=== PATIENT | male | born 1955 | race Caucasian/White ===

== ENCOUNTER 2020-04-11 21:30 | Emergency (ER) | payer BC ==
[2020-04-11] MEDS ORDERED: MEPERIDINE HCL 50 MG/ML ONE (22:13)
[2020-04-11] MEDS ORDERED: dexAMETHasone 4 MG/ML VIAL ONE (22:15)
[2020-04-11] MEDS ORDERED: KETOROLAC 30 MG/ML INJ ONE (22:16)
--- NOTE | 2020-04-11 23:06 | EDPHYS ---
Physician Documentation [facility] Name: Barrington Mary Age: 65 yrs Sex: Male : 1955 Arrival Date: 04/11/2020 Time: 21:32 Bed 13 Private MD: Julio Cesar Palencia ED Physician Blake Gerardo HPI: 04/11 22:17 This 65 yrs old Male presents to ER via Ambulatory with complaints of Low rn Back Pain. 22:17 The patient presents with pain that is acute. The symptoms are located in the low back, rn right low back. The pain does not radiate. Onset: The symptoms/episode began/occurred just prior to arrival. Modifying factors: The patient symptoms are alleviated by remaining still, the patient symptoms are aggravated by bending, movement. Associated signs and symptoms: Pertinent positives: none Pertinent negatives: abdominal pain, chest pain, constipation, dysuria, fever, headache, hematuria, incontinence, nausea, numbness, tingling, urinary retention, vomiting, weakness. Severity of symptoms: At their worst the symptoms were moderate, in the emergency department the symptoms are unchanged. The patient has not experienced similar symptoms in the past. Reports low back pain for last few days, has been walking a lot more lately, no direct injury, no abd pain, no urinary or bowel problems. no weakness of lower ext or focal neuro complaint. Reports pain to touch right lower back, to twist and rotate. Needed help getting out of bath tub due to pain. Better when still. . Historical: - Allergies: 21:47 Nubain; ca1 - Home Meds: 21:47 None [Active]; ca1 - PMHx: 21:47 Hypertension; High Cholesterol; ca1 - PSHx: 21:47 Carpal Tunnel Repair; Knee surgery; Appendectomy; Tonsillectomy; chin surgery; ca1 - Immunization history:: Adult Immunizations up to date. - Social history:: Smoking status: Patient/guardian denies using tobacco, the patient reports quitting approximately 5 years ago. - Family history:: not pertinent. - Hospitalizations: : No recent hospitalization is reported. ROS: 22:17 Constitutional: Negative for fever, chills, and weight loss, Neck: Negative for injury, rn pain, and swelling, Cardiovascular: Negative for chest pain, palpitations, and edema, Respiratory: Negative for shortness of breath, cough, wheezing, and pleuritic chest pain, Abdomen/GI: Negative for abdominal pain, nausea, vomiting, diarrhea, and constipation, Back: Negative for injury. + low back pain. MS/Extremity: Negative for injury and deformity, Skin: Negative for injury, rash, and discoloration, Neuro: Negative for headache, weakness, numbness, tingling, and seizure. Exam: 22:17 Constitutional: This is a well developed, well nourished patient who is awake, alert, rn and in no acute distress. Head/Face: Normocephalic, atraumatic. Cardiovascular: Regular rate and rhythm. No pulse deficits. Respiratory: Speaking full sentences, unlabored. Abdomen/GI: soft, non-tender, no distension, no pulsatile mass Back: No spinal tenderness, + right lower back muscular tenderness and reproducible pain with rotation/lifting right leg. Skin: Warm, dry, no cyanosis. MS/ Extremity: Pulses equal, no cyanosis. Neurovascular intact. Full, normal range of motion. Equal circumference. Neuro: Awake and alert, GCS 15, oriented to person, place, time, and situation. Cranial nerves II-XII grossly intact. Motor strength 5/5 in all extremities. Sensory grossly intact. Cerebellar exam normal. Vital Signs: 21:42 BP 178 / 107; Pulse 70; Resp 16 S; Temp 97.5(TE); Pulse Ox 98% on R/A; Weight 97.52 kg ca1 (R); Height 5 ft. 8 in. (172.72 cm) (R); Pain 10/10; 22:53 BP 159 / 87; Pulse 66; Resp 17 S; Pulse Ox 96% on R/A; jd3 23:16 BP 159 / 87; Pulse 68; Resp 16 S; Pulse Ox 96% on R/A; jd3 21:42 Body Mass Index 32.69 (97.52 kg, 172.72 cm) ca1 MDM: 21:47 Patient medically screened. rn 23:04 Differential diagnosis: strain, muscular pain. Data reviewed: vital signs, nurses rn notes, and as a result, I will discharge patient. Counseling: I had a detailed discussion with the patient and/or guardian regarding: the historical points, exam findings, and any diagnostic results supporting the discharge/admit diagnosis, the need for outpatient follow up, to return to the emergency department if symptoms worsen or persist or if there are any questions or concerns that arise at home. Special discussion: I discussed with the patient/guardian in detail that at this point there is no indication for admission to the hospital. It is understood, however, that if the symptoms persist or worsen the patient needs to return immediately for re-evaluation. ED course: Pt improved, will dc home as muscular back pain, with muscle relaxer, steroid, and pain med. . Administered Medications: 22:14 Not Given (Duplicate Order): Demerol 50 mg IM once; RASS on ADMIN: Combtv4, Very rn Agttd3, Agttd2, Rstlss1, AlertClm0, Drwsy-1, Lt Sdtn-2, Mod Sdtn-3, Dp Sdtn-4, UnArsble-5 22:15 Not Given (Duplicate Order): Decadron 10 mg IM once rn 22:34 CANCELLED (Other Intervention Used): Demerol 25 mg IVP once; RASS on ADMIN: Combtv4, jd3 Very Agttd3, Agttd2, Rstlss1, AlertClm0, Drwsy-1, Lt Sdtn-2, Mod Sdtn-3, Dp Sdtn-4, UnArsble-5 22:34 Not Given (Other Intervention Used): Decadron - Dexamethasone 10 mg IVP once jd3 22:34 Not Given (Other Intervention Used): TORadol - Ketorolac 15 mg IVP once jd3 22:34 Drug: TORadol - Ketorolac 15 mg Route: IM; Site: left deltoid; jd3 23:17 Follow up: Response: No adverse reaction jd3 22:35 Drug: Decadron 10 mg Route: IM; Site: right gluteus; jd3 23:17 Follow up: Response: No adverse reaction jd3 22:35 Drug: Demerol 50 mg Route: IM; Site: left deltoid; jd3 23:17 Follow up: Response: No adverse reaction jd3 Disposition: 04/11/20 23:05 Discharged to Home. Impression: Muscle spasm of back, Low back pain. - Condition is Stable. - Discharge Instructions: Back Pain, Adult, Muscle Cramps and Spasms. - Prescriptions for Cyclobenzaprine 10 mg Oral Tablet - take 1 tablet by ORAL route every 8 hours As needed; 20 tablet. Medrol (Sammy) 4 mg Oral Tablets, Dose Pack - take 1 tablet by ORAL route as directed - follow package instructions; 1 packet. Tramadol 50 mg Oral Tablet - take 1 tablet by ORAL route every 8 hours as needed; 12 tablet. - Medication Reconciliation Form, Thank You Letter, Antibiotic Education, Prescription Opioid Use, Work release form form. - Follow up: Private Physician; When: As needed; Reason: Recheck today's complaints, Re-evaluation by your physician. - Problem is new. - Symptoms have improved. Signatures: Blake Gerardo MD MD rn GrimesBlaze RN RN jd3 Acob, Jennifer, RN RN ca1 Corrections: (The following items were deleted from the chart) 22:26 22:16 IV Saline Lock ordered. rn jd3 22:34 22:16 Demerol 25 mg IVP once; RASS on ADMIN: Combtv4, Very Agttd3, Agttd2, Rstlss1, jd3 AlertClm0, Drwsy-1, Lt Sdtn-2, Mod Sdtn-3, Dp Sdtn-4, UnArsble-5 ordered. rn 23:17 23:05 04/11/2020 23:05 Discharged to Home. Impression: Muscle spasm of back; Low back jd3 pain. Condition is Stable. Forms are Medication Reconciliation Form, Thank You Letter, Antibiotic Education, Prescription Opioid Use. Follow up: Private Physician; When: As needed; Reason: Recheck today's complaints, Re-evaluation by your physician. Problem is new. Symptoms have improved. rn
--- NOTE | 2020-04-11 23:06 | ER ---
Nurse's Notes [facility] Name: Barrington Mary Age: 65 yrs Sex: Male : 1955 Arrival Date: 04/11/2020 Time: 21:32 Bed 13 Private MD: Julio Cesar Palencia Diagnosis: Muscle spasm of back;Low back pain Presentation: 04/11 21:42 Chief complaint: Patient states: Low back pain more on the R started Thursday. Denies ca1 injury. Denies urinary symptoms. Denies HX of kidney stones. Tonight, reports twisting back and worsening pain. Pain is worst with twisting ang movement. Coronavirus screen: Client denies travel out of the [place] in the last 14 days. At this time, the client does not indicate any symptoms associated with coronavirus-19. Client reports previous positive COVID test result. Date of collection: December 2019. Ebola Screen: Patient negative for fever greater than or equal to 101.5 degrees Fahrenheit, and additional compatible Ebola Virus Disease symptoms Patient denies exposure to infectious person. Patient denies travel to an Ebola-affected area in the 21 days before illness onset. No symptoms or risks identified at this time. Initial Sepsis Screen: Does the patient meet any 2 criteria? No. Patient's initial sepsis screen is negative. Does the patient have a suspected source of infection? No. Patient's initial sepsis screen is negative. Risk Assessment: Do you want to hurt yourself or someone else? Patient reports no desire to harm self or others. Onset of symptoms was April 11, 2020. 21:42 Method Of Arrival: Ambulatory ca1 21:42 Acuity: SHAI 3 ca1 Historical: - Allergies: 21:47 Nubain; ca1 - Home Meds: 21:47 None [Active]; ca1 - PMHx: 21:47 Hypertension; High Cholesterol; ca1 - PSHx: 21:47 Carpal Tunnel Repair; Knee surgery; Appendectomy; Tonsillectomy; chin surgery; ca1 - Immunization history:: Adult Immunizations up to date. - Social history:: Smoking status: Patient/guardian denies using tobacco, the patient reports quitting approximately 5 years ago. - Family history:: not pertinent. - Hospitalizations: : No recent hospitalization is reported. Screenin:49 Abuse screen: Denies threats or abuse. Nutritional screening: No deficits noted. jd3 Tuberculosis screening: No symptoms or risk factors identified. Fall Risk Ambulatory Aid- None/Bed Rest/Nurse Assist (0 pts). Gait- Normal/Bed Rest/Wheelchair (0 pts) Mental Status- Oriented to own ability (0 pts). Total Fernandez Fall Scale indicates No Risk (0-24 pts). Assessment: 21:47 General: Appears in no apparent distress. uncomfortable, Behavior is calm, cooperative, jd3 appropriate for age. Pain: Complains of pain in low back area Quality of pain is described as sharp, shooting. Neuro: Level of Consciousness is awake, alert, obeys commands, Oriented to person, place, time, situation. Cardiovascular: Denies chest pain, Capillary refill < 3 seconds Patient's skin is warm and dry. Respiratory: Airway is patent Respiratory effort is even, unlabored, Respiratory pattern is regular, symmetrical, Denies cough, shortness of breath. GI: No signs and/or symptoms were reported involving the gastrointestinal system. : No signs and/or symptoms were reported regarding the genitourinary system. EENT: No signs and/or symptoms were reported regarding the EENT system. Derm: Skin is intact, Skin is dry, Skin is normal, Skin temperature is warm. Musculoskeletal: Circulation, motion, and sensation intact. Range of motion: intact in all extremities. 22:52 Reassessment: Patient appears in no apparent distress at this time. Patient and/or jd3 family updated on plan of care and expected duration. Pain level reassessed. Patient is alert, oriented x 3, equal unlabored respirations, skin warm/dry/pink. 23:16 Reassessment: Patient appears in no apparent distress at this time. Patient and/or jd3 family updated on plan of care and expected duration. Pain level reassessed. Patient is alert, oriented x 3, equal unlabored respirations, skin warm/dry/pink. Patient states feeling better. Vital Signs: 21:42 BP 178 / 107; Pulse 70; Resp 16 S; Temp 97.5(TE); Pulse Ox 98% on R/A; Weight 97.52 kg ca1 (R); Height 5 ft. 8 in. (172.72 cm) (R); Pain 10/10; 22:53 BP 159 / 87; Pulse 66; Resp 17 S; Pulse Ox 96% on R/A; jd3 23:16 BP 159 / 87; Pulse 68; Resp 16 S; Pulse Ox 96% on R/A; jd3 21:42 Body Mass Index 32.69 (97.52 kg, 172.72 cm) ca1 ED Course: 21:32 Patient arrived in ED. am2 21:32 Julio Cesar Palencia MD is Private Physician. am2 21:44 Blaze Grimes, RN is Primary Nurse. jd3 21:46 Triage completed. ca1 21:47 Blake Gerardo MD is Attending Physician. rn 21:47 Arm band placed on right wrist. ca1 21:49 Patient has correct armband on for positive identification. Bed in low position. Call jd3 light in reach. Side rails up X 1. Adult w/ patient. Pulse ox on. NIBP on. 23:16 No provider procedures requiring assistance completed. Patient did not have IV access jd3 during this emergency room visit. Administered Medications: 22:14 Not Given (Duplicate Order): Demerol 50 mg IM once; RASS on ADMIN: Combtv4, Very rn Agttd3, Agttd2, Rstlss1, AlertClm0, Drwsy-1, Lt Sdtn-2, Mod Sdtn-3, Dp Sdtn-4, UnArsble-5 22:15 Not Given (Duplicate Order): Decadron 10 mg IM once rn 22:34 CANCELLED (Other Intervention Used): Demerol 25 mg IVP once; RASS on ADMIN: Combtv4, jd3 Very Agttd3, Agttd2, Rstlss1, AlertClm0, Drwsy-1, Lt Sdtn-2, Mod Sdtn-3, Dp Sdtn-4, UnArsble-5 22:34 Not Given (Other Intervention Used): Decadron - Dexamethasone 10 mg IVP once jd3 22:34 Not Given (Other Intervention Used): TORadol - Ketorolac 15 mg IVP once jd3 22:34 Drug: TORadol - Ketorolac 15 mg Route: IM; Site: left deltoid; jd3 23:17 Follow up: Response: No adverse reaction jd3 22:35 Drug: Decadron 10 mg Route: IM; Site: right gluteus; jd3 23:17 Follow up: Response: No adverse reaction jd3 22:35 Drug: Demerol 50 mg Route: IM; Site: left deltoid; jd3 23:17 Follow up: Response: No adverse reaction jd3 Outcome: 23:05 Discharge ordered by . rn 23:17 Discharged to home ambulatory, with family. jd3 23:17 Condition: stable 23:17 Discharge instructions given to patient, Instructed on discharge instructions, follow up and referral plans. medication usage, Demonstrated understanding of instructions, follow-up care, medications, Prescriptions given X 3. 23:17 Patient left the ED. jd3 Signatures: Blake Gerardo MD MD rn Ermelinda Traylor Jonathon, RN RN jd3 Jennifer Rivas RN RN ca1
[2020-04-11 23:33] VITALS: TEMP 97.5
[2020-04-11 23:34] VITALS: BP 159/87; O2SAT 96
== END 2020-04-11 23:17 | disposition home or self-care (01) ==
LOC: ER 21:30
DX: M62.830 Muscle spasm of back (principal); I10 Essential (primary) hypertension; Z88.6 Allergy status to analgesic agent
CPT/HCPCS: 96372; 99283; J1100; J2175

== ENCOUNTER 2021-04-09 21:40 | Inpatient (IN) | payer BC, OTHER ==
[2021-04-09 22:20] LABS: Absolute Lymphocytes (CBC) 1.9 K/uL (0.7-4.9); Basophils % 0.3 % (0-1.3); Lymphocytes % 23.2 % (15.3-44.8); MPV 7.5 fL (7.6-11.3); RBC Red Blood Cell Count 4.68 M/uL (4.33-5.43)
[2021-04-09 22:35] LABS: ALT/SGPT 49 U/L (12-78); Alkaline Phosphatase 94 U/L (45-117); BUN Blood Urea Nitrogen 12 mg/dL (7-18); Bicarbonate 28 mmol/L (21-32); Bilirubin Direct 0.1 mg/dL (0-0.2); Bilirubin Total 0.3 mg/dL (0.2-1.0); Glucose Level 211 mg/dL (74-106); NT PRO-BNP 26 pg/mL (<125); Protein, Total 7.4 g/dL (6.4-8.2); Sodium Level 142 mmol/L (136-145); Troponin (Emerg Dept Use Only) < 0.02 ng/mL (0.0-0.045)
[2021-04-09 22:36] LABS: AST/SGOT 39 U/L (15-37); Magnesium 2.1 mg/dL (1.8-2.4); Potassium 3.9 mmol/L (3.5-5.1)
[2021-04-09] MEDS ORDERED: NITROGLYCERIN 1 GM PKT TD ONE (23:29)
[2021-04-09] MEDS ORDERED: LORazepam 2 MG/ML VIAL ONE (23:34)
[2021-04-09] MEDS ORDERED: NA CHLORIDE 0.9% 1,000 ML ONE (23:39)
--- NOTE | 2021-04-09 23:57 | EDPHYS ---
Physician Documentation [facility] Name: Barrington Mary Age: 66 yrs Sex: Male : 1955 Arrival Date: 04/09/2021 Time: 21:48 Bed 6 Private MD: ED Physician Niranjan Chen HPI: 04/09 23:20 This 66 yrs old Male presents to ER via EMS with complaints of Chest Pain. cp 23:20 The patient or guardian reports chest pain that is located primarily in the substernal cp area. 23:20 The pain does not radiate. Associated signs and symptoms: Pertinent negatives: cp abdominal pain, dizziness, lower extremity pain, lower extremity swelling, palpitations, shortness of breath, syncope, vomiting. The chest pain is described as aching. 23:20 Patient reports intermittent chest pain for past several weeks that is worse with cp exertion and relieved with rest. Patient reports episode of chest pain this evening while in shower. EMS was called and chest pain relieved with nitro and aspirin. Historical: - Allergies: 21:55 Nubain; vg1 21:55 Sulfa (Sulfonamide Antibiotics); vg1 - Home Meds: 21:55 Metformin Oral [Active]; Metoprolol Tartrate Oral [Active]; amlodipine oral [Active]; vg1 rosuvastatin oral [Active]; - PMHx: 21:55 High Cholesterol; Hypertension; vg1 - Immunization history:: Adult Immunizations up to date, Client reports receiving the 2nd dose of the Covid vaccine. - Social history:: Smoking status: Patient denies any tobacco usage or history of. ROS: 23:25 Constitutional: Negative for body aches, chills, fever, poor PO intake. cp 23:25 Eyes: Negative for injury, pain, redness, and discharge. cp 23:25 Neck: Negative for pain with movement, pain at rest, stiffness. 23:25 Cardiovascular: Positive for chest pain, Negative for edema, palpitations. 23:25 Respiratory: Negative for cough, shortness of breath, wheezing. 23:25 Abdomen/GI: Negative for abdominal pain, nausea, vomiting, and diarrhea. 23:25 Back: Negative for pain at rest, pain with movement. 23:25 Neuro: Negative for altered mental status, headache, syncope, weakness. 23:25 All other systems are negative. Exam: 22:00 ECG was reviewed by the Attending Physician. cp 23:30 Constitutional: The patient appears in no acute distress, alert, awake, cp non-diaphoretic, non-toxic, well developed, well nourished, anxious. 23:30 Head/Face: Normocephalic, atraumatic. cp 23:30 Eyes: Periorbital structures: appear normal, Conjunctiva: normal, no exudate, no injection, Sclera: no appreciated abnormality, Lids and lashes: appear normal, bilaterally. 23:30 ENT: External ear(s): are unremarkable, Nose: is normal, Mouth: Lips: moist, Oral mucosa: pink and intact, moist, Posterior pharynx: Airway: no evidence of obstruction, patent. 23:30 Neck: ROM/movement: is normal, is supple, without pain, no range of motions limitations. 23:30 Chest/axilla: Inspection: normal, Palpation: is normal, no crepitus, no tenderness. 23:30 Cardiovascular: Rate: normal, Rhythm: regular, Edema: is not appreciated, JVD: is not appreciated. 23:30 Respiratory: the patient does not display signs of respiratory distress, Respirations: normal, no use of accessory muscles, no retractions, labored breathing, is not present, Breath sounds: are clear throughout, no decreased breath sounds, no stridor, no wheezing. 23:30 Abdomen/GI: Inspection: abdomen appears normal, Palpation: abdomen is soft and non-tender. 23:30 Back: pain, is absent, ROM is normal. 23:30 Neuro: Orientation: is normal, Mentation: is normal, Motor: moves all fours, strength is normal, Sensation: is normal. Vital Signs: 21:51 BP 141 / 79; Pulse 62; Resp 18; Temp 98.1; Pulse Ox 98% ; Weight 99.79 kg; Height 5 ft. vg1 8 in. (172.72 cm); Pain 1/10; 23:26 BP 145 / 86; Pulse 56; Resp 18; Pulse Ox 100% on R/A; Pain 3/10; wg 04/10 00:45 BP 142 / 80; Pulse 60; Resp 18; Pulse Ox 99% on R/A; Pain 0/10; wg 04/09 21:51 Body Mass Index 33.45 (99.79 kg, 172.72 cm) [facility] MDM: 04/09 23:06 Patient medically screened. cp 23:55 The patient was not given aspirin in the Emergency Department. Administered by EMS. cp 23:55 Differential diagnosis: abnormal EKG, anxiety, cholecystitis, Cholelithiasis pleurisy, cp pneumonia, pneumothorax, pulmonary embolus, stable angina, thoracic aortic disection, unstable angina. Data reviewed: vital signs, nurses notes, lab test result(s), EKG, radiologic studies, plain films. Test interpretation: by ED physician or midlevel provider: ECG, plain radiologic studies. Response to treatment: the patient's symptoms have markedly improved after treatment, and as a result, I will admit patient. Physician consultation: Jin HORTON was called at 23:50, was contacted at 23:50, regarding admission, to the telemetry unit. patient's condition. 04/09 21:58 Order name: Basic Metabolic Panel; Complete Time: 23:06 [facility] 04/09 21:58 Order name: CBC with Diff; Complete Time: 23:06 [facility] 04/09 21:58 Order name: LFT's; Complete Time: 23:06 [facility] 04/09 21:58 Order name: Magnesium; Complete Time: 23:06 [facility] 04/09 21:58 Order name: NT PRO-BNP; Complete Time: 23:06 [facility] 04/09 21:58 Order name: PT-INR; Complete Time: 23:06 [facility] 04/09 21:58 Order name: Troponin (emerg Dept Use Only); Complete Time: 23:06 [facility] 04/09 21:58 Order name: XRAY Chest (1 view) [facility] 04/09 23:25 Order name: SARS-COV-2 RT PCR [facility] 04/09 21:58 Order name: EKG; Complete Time: 21:59 [facility] 04/09 21:58 Order name: Cardiac monitoring; Complete Time: 22:51 [facility] 04/09 21:58 Order name: EKG - Nurse/Tech; Complete Time: 21:58 [facility] 04/09 21:58 Order name: IV Saline Lock; Complete Time: 21:58 [facility] 04/09 21:58 Order name: Labs collected and sent; Complete Time: 21:58 [facility] 04/09 21:58 Order name: O2 Per Protocol; Complete Time: 21:58 [facility] 04/09 21:58 Order name: O2 Sat Monitoring; Complete Time: :58 [facility] 04/10 00:04 Order name: CONS Physician Consult; Complete Time: 00:38 EDMS EC:00 Rate is 60 beats/min. Rhythm is regular. GA interval is normal. QRS interval is cp prolonged at 108 msec. QT interval is normal. T waves are Inverted in lead aVR. Interpreted by me. Reviewed by me. Administered Medications: 23:12 Drug: Ativan (LORazepam) 0.5 mg Route: IVP; Infused Over: 2 mins; Site: left antecubital; 04/10 01:00 Follow up: Response: No adverse reaction 04/09 23:13 Drug: NS 0.9% 1000 ml Route: IV; Rate: 75 ml/hr; Infused Over: 30 mins; Site: left antecubital; 04/10 00:59 Follow up: IV Status: Completed infusion; IV Intake: 1000ml 04/09 23:13 Not Given (Given By EMS): Aspirin Chewable Tablet 324 mg PO once; 81 mg tablets x 4 04/10 00:10 Drug: Ativan (LORazepam) 0.5 mg Route: IVP; Infused Over: 2 mins; Site: left antecubital; 01:00 Follow up: Response: No adverse reaction Disposition: 07:28 Co-signature as Attending Physician, Niranjan Chen MD. 7 Disposition Summary: 04/09/21 23:56 Hospitalization Ordered Hospitalization Status: Observation cp Provider: Narciso Lechuga cp Location: Telemetry/MedSurg (observation) cp Condition: Stable cp Problem: new cp Symptoms: have improved cp Bed/Room Type: Standard cp Room Assignment: 428(04/10/21 00:44) 1 Diagnosis - Angina pectoris, unspecified cp Forms: - Medication Reconciliation Form cp - SBAR form cp Signatures: Dispatcher [employer] EDMS Ean Lopez PA PA cp Basinger, Emily, RN RN eb1 Tiffani Duffy RN RN 1 Niranjan Chen MD MD 7 Ted King RN Corrections: (The following items were deleted from the chart) 04/09 23:25 23:02 CORONAVIRUS+MR.LAB.BRZ ordered. EDMS EDMS 04/10 00:44 10/19 23:56 cp eb1
--- NOTE | 2021-04-09 23:57 | ER ---
Nurse's Notes [facility] Name: Barrington Mary Age: 66 yrs Sex: Male : 1955 Arrival Date: 04/09/2021 Time: 21:48 Bed 6 Private MD: Diagnosis: Angina pectoris, unspecified Presentation: 04/09 21:51 Chief complaint: EMS states: Chest Pain, states mid sternum, denies radiation. Denies vg1 NVD, headache, abd pain. Stated had mid back pain but at this time no pain. Pt was given Nitro 0.4 mg by EMS. EMS stated initial BP was 198/110 after Nitro BP was 127/71. Pt states Left side of Jaw has been hurting for the past couple weeks. Coronavirus screen: Vaccine status: Patient reports receiving the 2nd dose of the covid vaccine. Client denies travel out of the [place] in the last 14 days. Ebola Screen: Patient negative for fever greater than or equal to 101.5 degrees Fahrenheit, and additional compatible Ebola Virus Disease symptoms. Initial Sepsis Screen: Does the patient meet any 2 criteria? No. Patient's initial sepsis screen is negative. Does the patient have a suspected source of infection? No. Patient's initial sepsis screen is negative. Risk Assessment: Do you want to hurt yourself or someone else? Patient reports no desire to harm self or others. Onset of symptoms was April 09, 2021. 21:51 Method Of Arrival: EMS: [facility] 1 21:51 Acuity: SHAI 3 vg1 Triage Assessment: 21:55 General: Appears in no apparent distress. uncomfortable, Behavior is calm, cooperative. vg1 Pain: Complains of pain in chest. Cardiovascular: Patient's skin is warm and dry. Historical: - Allergies: 21:55 Nubain; vg1 21:55 Sulfa (Sulfonamide Antibiotics); vg1 - Home Meds: 21:55 Metformin Oral [Active]; Metoprolol Tartrate Oral [Active]; amlodipine oral [Active]; vg1 rosuvastatin oral [Active]; - PMHx: 21:55 High Cholesterol; Hypertension; vg1 - Immunization history:: Adult Immunizations up to date, Client reports receiving the 2nd dose of the Covid vaccine. - Social history:: Smoking status: Patient denies any tobacco usage or history of. Assessment: 23:24 Pain: Complains of pain in chest Pain does not radiate. Pain currently is 4 out of 10 wg on a pain scale. Pain began gradually. Cardiovascular: Reports chest pain, Denies lightheadedness, nausea, palpitations, shortness of breath, syncope, vomiting. Respiratory: Airway is patent Trachea midline Respiratory effort is even, unlabored, Respiratory pattern is regular, symmetrical, Breath sounds are clear bilaterally. GI: No deficits noted. Vital Signs: 21:51 BP 141 / 79; Pulse 62; Resp 18; Temp 98.1; Pulse Ox 98% ; Weight 99.79 kg; Height 5 ft. vg1 8 in. (172.72 cm); Pain 1/10; 23:26 BP 145 / 86; Pulse 56; Resp 18; Pulse Ox 100% on R/A; Pain 3/10; wg 04/10 00:45 BP 142 / 80; Pulse 60; Resp 18; Pulse Ox 99% on R/A; Pain 0/10; wg 04/09 21:51 Body Mass Index 33.45 (99.79 kg, 172.72 cm) vg1 ED Course: 04/09 21:48 Patient arrived in ED. vg1 21:55 Triage completed. vg1 21:55 Arm band placed on. EKG completed in triage. Results shown to MD. vg1 21:57 Initial lab(s) drawn, by ED staff, sent to lab. Maintain EMS IV. Dressing intact. Good vg1 blood return noted. Site clean \T\ dry. Gauge \T\ site: 20 G L AC. 22:25 XRAY Chest (1 view) In Process Unspecified. EDMS 23:00 Ean Lopez PA is PHCP. cp 23:00 Niranjan Chen MD is Attending Physician. cp 23:12 Ted King, NATALIE is Primary Nurse. wg 23:56 Narciso Lechuga MD is Hospitalizing Provider. cp 04/10 00:09 SARS-COV-2 RT PCR Sent. wg 00:59 Patient admitted, IV remains in place. wg 00:59 Patient maintains SpO2 saturation greater than 95% on room air. wg Administered Medications: 04/09 23:12 Drug: Ativan (LORazepam) 0.5 mg Route: IVP; Infused Over: 2 mins; Site: left wg antecubital; 10/20 01:00 Follow up: Response: No adverse reaction 04/09 23:13 Drug: NS 0.9% 1000 ml Route: IV; Rate: 75 ml/hr; Infused Over: 30 mins; Site: left antecubital; 04/10 00:59 Follow up: IV Status: Completed infusion; IV Intake: 1000ml 04/09 23:13 Not Given (Given By EMS): Aspirin Chewable Tablet 324 mg PO once; 81 mg tablets x 4 04/10 00:10 Drug: Ativan (LORazepam) 0.5 mg Route: IVP; Infused Over: 2 mins; Site: left antecubital; 01:00 Follow up: Response: No adverse reaction Intake: 00:59 IV: 1000ml; Total: 1000ml. Outcome: 04/09 23:56 Decision to Hospitalize by Provider. 04/10 00:57 Admitted to Tele accompanied by tech, room 428, with chart, Report called to 4th Floor wg RN 01:41 Patient left the ED. ms4 Signatures: Dispatcher [employer] EDMS Ean Lopez PA PA cp Garcia, Victoria, RN RN vg1 Alyssa Swain, RN RN ms4 Ted King RN wg Corrections: (The following items were deleted from the chart) 04/09 23:25 23:24 CORONAVIRUS+MRNATALIA drawn and sent. EDMS
[2021-04-10] MEDS ORDERED: LORazepam 2 MG/ML VIAL ONE (00:28)
--- NOTE | 2021-04-10 01:08 | P.HP ---
Certification for Inpatient Patient admitted to: Observation With expected LOS: <2 Midnights Patient will require the following post-hospital care: None Practitioner: I am a practitioner with admitting privileges, knowledge of patient current condition, hospital course, and medical plan of care. Services: Services provided to patient in accordance with Admission requirements found in Title 42 Section 412.3 of the Code of Federal Regulations Patient History Date of Service: 04/10/21 Primary Care Provider: Talha Reason for admission: chest pain History of Present Illness: Mr. Mary is a 66 yo M with HTN, HLD, DM, prostate ca who presents with episodes of chest pain beginning in December. He describes 8/10 burning sternal chest pain beginning with exertion and relieved with rest. Occasionally the pain radiates to his back. Reports diaphoresis and SOb. Denies nausea, vomiting, lightheadedness, palpitations and vision changes. 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 Glu 211. Allergies nalbuphine HCl [From Nubain] Allergy (Unverified 05/30/15 09:02) Unknown Sulfa (Sulfonamide Antibiotics) Allergy (Unverified 05/30/15 09:02) Unknown - Past Medical/Surgical History Has patient received pneumonia vaccine in the past: No Diabetic: Yes -: HTN -: DM -: HLD -: prostate ca -: asbestosis -: knee surgery -: hernia repair -: appy -: tonsillectomy -: carpal tunnel repair Psychosocial/ Personal History: . - Social History Smoking Status: Never smoker Alcohol use: No CD- Drugs: No Caffeine use: No Place of Residence: Home Review of Systems 10-point ROS is otherwise unremarkable General: Unremarkable Eyes: Unremarkable ENT: Unremarkable Respiratory: Shortness of Breath Cardiovascular: Chest Pain Gastrointestinal: Unremarkable Genitourinary: Unremarkable Musculoskeletal: Unremarkable Integumentary: Unremarkable Neurological: Unremarkable Lymphatics: Unremarkable Physical Examination - Physical Exam General: Alert, In no apparent distress HEENT: Atraumatic, PERRLA, Mucous membr. moist/pink, EOMI, Sclerae nonicteric Neck: Supple, 2+ carotid pulse no bruit, No LAD, Without JVD or thyroid abnormality Respiratory: Clear to auscultation bilaterally, Normal air movement Cardiovascular: Regular rate/rhythm, Normal S1 S2 Gastrointestinal: Normal bowel sounds, No tenderness Musculoskeletal: No tenderness Integumentary: No rashes Neurological: Normal gait, Normal speech, Normal strength at 5/5 x4 extr, Normal tone, Normal affect Lymphatics: No axilla or inguinal lymphadenopathy - Studies Laboratory Data (last 24 hrs) 04/09/21 21:57: PT 11.5, INR 1.00 04/09/21 21:57: WBC 8.20, Hgb 14.5, Hct 42.0, Plt Count 183 04/09/21 21:57: Sodium 142, Potassium 3.9, BUN 12, Creatinine 1.25, Glucose 211 H, Magnesium 2.1, Total Bilirubin 0.3, AST 39 H, ALT 49, Alkaline Phosphatase 94 Assessment and Plan - Problems (Diagnosis) (1) Chest pain Current Visit: Yes Status: Acute Qualifiers: Chest pain type: unspecified Qualified Code(s): R07.9 - Chest pain, unspecified (2) HLD (hyperlipidemia) Current Visit: Yes Status: Chronic Qualifiers: Hyperlipidemia type: unspecified Qualified Code(s): E78.5 - Hyperlipidemia, unspecified (3) HTN (hypertension) Current Visit: Yes Status: Chronic Qualifiers: Hypertension type: primary hypertension Qualified Code(s): I10 - Essential (primary) hypertension (4) T2DM (type 2 diabetes mellitus) Current Visit: Yes Status: Chronic Qualifiers: Diabetes mellitus group home insulin use: without manager intermediate use Diabetes mellitus complication status: without complication Qualified Code(s): E11.9 - Type 2 diabetes mellitus without complications - Plan cardiology consulted trend troponin and repeat EKG daily ASA, metoprolol, statin, morphine and NTG prn for pain lipid and thyroid panel pending A1c pending, sliding scale insulin and accuchecks reconcile and continue home medications DVT ppx Discharge Plan: Home Plan to discharge in: 24 Hours - Advance Directives Does patient have a Living Will: No Does patient have a Durable POA for Healthcare: No - Code Status/Comfort Care Code Status Assessed: Yes (full code ) Critical Care: No Time Spent Managing Pts Care (In Minutes): 70
[2021-04-10] MEDS ORDERED: ONDANSETRON 4 MG/2 ML VIAL IV PRN (01:52)
[2021-04-10] MEDS ORDERED: ACETAMINOPHEN 500 MG TAB PO PRN (01:52)
[2021-04-10] MEDS ORDERED: NITROGLYCERIN 0.4 MG/TAB SL PRN (01:52)
[2021-04-10 01:55] VITALS: BMI 33.3
[2021-04-10] MEDS: ALPRAZOLAM 0.5 MG TABLET PO PRN ×2 (02:14→22:14)
[2021-04-10] MEDS: METOPROLOL TAR 25 MG TAB PO SCH ×2 (06:00→16:16)
[2021-04-10 07:12] LABS: Absolute Lymphocytes (CBC) 1.5 K/uL (0.7-4.9); Basophils % 0.3 % (0-1.3); Hematocrit 41.4 % (39.6-49.0); Lymphocytes % 21.2 % (15.3-44.8); MPV 7.4 fL (7.6-11.3); RBC Red Blood Cell Count 4.69 M/uL (4.33-5.43)
[2021-04-10] MEDS: ASPIRIN EC 81 MG TAB PO SCH (07:26)
[2021-04-10] MEDS: ENOXAPARIN 40 MG/0.4 ML SQ SCH (07:26)
[2021-04-10] MEDS: INSULIN -REGULAR HUMAN 50 UNIT/0.5 ML ML SQ SCH ×4 (07:30→21:00)
--- NOTE | 2021-04-10 07:33 | RAD REPORT ---
EXAM DESCRIPTION: Caroline Single View04/09/2021 10:25 pm CLINICAL HISTORY: Chest pain COMPARISON: 2012 FINDINGS: The lungs appear clear of acute infiltrate. The heart is borderline enlarged. Calcified l suellen granulomas are present IMPRESSION: No acute abnormalities displayed
[2021-04-10 07:44] LABS: Albumin 3.7 g/dL (3.4-5.0); Bilirubin Total 0.4 mg/dL (0.2-1.0); Phosphorus 3.4 mg/dL (2.5-4.9); Potassium 3.9 mmol/L (3.5-5.1); Protein, Total 6.9 g/dL (6.4-8.2); Thyroid Stimulating Hormone 0.63 uIU/mL (0.360-3.740)
[2021-04-10] MEDS ORDERED: PNEUMOCOCCAL VACCINE 0.5 ML IMVAC ONE (08:00)
[2021-04-10] MEDS ORDERED: INFLUENZA VACCINE (for 6+ mo) 0.5 ML DOSE IMVAC ONE (08:00)
--- NOTE | 2021-04-10 12:34 | CON ---
Date of Consultation: 04/10/2021 Reason For Consultation: Unstable angina. History Of Present Illness: Mr. Mary is a 66-year-old male. Has had a history of diabetes, hyperten diana, dyslipidemia, gastroesophageal reflux disease. Has had a normal stress test in my office about a year and a half ago. At this time, he complains of substernal chest pressure, burning, radiating to both shoulders with exertion and stops at rest. He gets diaphoretic and short of breath with it. Denied PND, orthopnea, pedal edema, palpitation, or syncope. He has already ruled out for an OH. Past Medical History: As stated above. Allergies: HE IS ALLERGIC TO SULFA. Review of Systems: Negative. Social History: Negative. Family History: Positive for heart disease. Medications: Include Nexium, metformin, metoprolol, and Norvasc. Physical Examination: Vital Signs: Stable. He was afebrile. HEENT: Negative. Neck: Supple with no bruit. Chest: Clear. Cardiac: Revealed a regular rhythm and rate. No murmurs, gallops, or rubs. Abdomen: Benign. Extremities: Revealed no clubbing, cyanosis, or edema. Diagnostic Data: As stated earlier. EKG showed nonspecific changes. Chest x-ray is negative. Trop onin is negative. Impression And Plan: The patient's symptoms are classic for unstable angina with substernal chest pr essure and burning with exertion that stops at rest. He gets diaphoretic. He gets short of breath. He has many risk factors including obesity, hypertension, diabetes, dyslipidemia. I suggested a lef t heart catheterization to rule out coronary artery disease. He agrees to proceed. He understands t he risk and the benefit. For now, continue present regimen. Continue Lovenox. I will hold Lovenox after midnight. He will be n.p.o. after midnight. He has had issues with thrombocytopenia and I keesha l discuss that further with Dr. Lechuga. NB/MODL Voice ID: [id number] Report ID: [id number]
--- NOTE | 2021-04-10 13:18 | ECHO ---
HEIGHT: 5 ft 8 in WEIGHT: 219 lb 2 oz DATE OF STUDY: 04/10/[address]: Bob Mckeon MD 2-DIMENSIONAL: YES M.MODE: YES DOPPLER: YES COLOR FLOW: YES TDS: PORTABLE: DEFINITY: BUBBLE STUDY: DIAGNOSIS: CHEST PAIN CARDIAC HISTORY: CATHERIZATION: NO SURGERY: NO PROSTHETIC VALVE: NO PACEMAKER: NO MEASUREMENTS (cm) DIASTOLIC (NORMALS) SYSTOLIC (NORMALS) IVSd 1.2 (0.6-1.2) LA Diam 3.0 (1.9-4.0) LVEF 53% LVIDd 4.4 (3.5-5.7) LVIDs 3.2 (2.0-3.5) %FS 27% LVPWd 1.2 (0.6-1.2) Ao Diam 2.6 (2.0-3.7) 2 DIMENSIONAL ASSESSMENT: RIGHT ATRIUM: NORMAL LEFT ATRIUM: RIGHT VENTRICLE: NORMAL LEFT VENTRICLE: TRICUSPID VALVE: NORMAL MITRAL VALVE: PULMONIC VALVE: NORMAL AORTIC VALVE: PERICARDIAL EFFUSION: NONE AORTIC ROOT: LEFT VENTRICULAR WALL MOTION: DOPPLER/COLOR FLOW: MILD TRICUSPID REGURGITATION. NORMAL RIGHT VENTRICULAR SYSTOLIC PRESSURE. COMMENTS: NORMAL LEFT VENTRICULAR SIZE AND FUNCTION. NORMAL WALL MOTION. NO EFFUSION. MILD TRICUSPID REGURGITATION. TECHNOLOGIST: ALEXY WALKER
[2021-04-10] MEDS ORDERED: METOPROLOL XL 50 MG TAB PO ONE (16:46)
[2021-04-10] MEDS ORDERED: ROSUVASTATIN 10 MG TAB PO SCH (21:00)
[2021-04-11 03:40] LABS: Basophils % 0.7 % (0-1.3); Hematocrit 42.4 % (39.6-49.0); Lymphocytes % 22.8 % (15.3-44.8); MPV 7.7 fL (7.6-11.3); RBC Red Blood Cell Count 4.75 M/uL (4.33-5.43)
[2021-04-11 03:59] LABS: Albumin 3.8 g/dL (3.4-5.0); Bilirubin Total 0.5 mg/dL (0.2-1.0); Magnesium 2.2 mg/dL (1.8-2.4); Phosphorus 3.7 mg/dL (2.5-4.9); Protein, Total 7.1 g/dL (6.4-8.2)
[2021-04-11] MEDS: ASPIRIN EC 81 MG TAB PO SCH (04:55)
[2021-04-11] MEDS: INSULIN -REGULAR HUMAN 50 UNIT/0.5 ML ML SQ SCH ×3 (07:30→16:30)
[2021-04-11] MEDS: ENOXAPARIN 40 MG/0.4 ML SQ SCH (08:42)
[2021-04-11] MEDS ORDERED: METOPROLOL XL 100 MG TAB PO SCH (09:00)
[2021-04-11] MEDS ORDERED: LIDOCAINE 1% 20 ML MDV ONE (10:06)
[2021-04-11] MEDS ORDERED: NA CHLORIDE 0.9% 500 ML ONE (10:06)
[2021-04-11] MEDS ORDERED: HEPA 1000U/500MLS 1,000 UNIT/500 ML BAG IV ONE (10:06)
[2021-04-11] MEDS ORDERED: MIDAZOLAM HCL 2 MG/2 ML INJ ONE ×3 (11:23→11:56)
[2021-04-11] MEDS ORDERED: NA CHLORIDE 0.9% 0 ML ONE (11:23)
[2021-04-11] MEDS ORDERED: FENTANYL CITR 100 MCG/2 ML ONE (11:24)
[2021-04-11] MEDS ORDERED: ATROPINE SULF 1 MG/10 ML SYR IV ONE (11:24)
--- NOTE | 2021-04-11 12:17 | OP ---
Date of Procedure: 04/11/2021 Surgeon: Bob Mckeon MD Procedure In Detail: The patient was brought to the senior cytogenetics laboratory director on 04/11/2021 because of unstable angin a symptoms. He was prepped and draped in the routine sterile fashion. Given Versed and fentanyl for sedation. Using Seldinger technique and 10 mL of xylocaine, a 6-Romansh sheath was introduced in the right common femoral artery successfully. StarClose was used to close the case. Tea catheter l eft and right were used to do the diagnostic catheterization. The patient was found to have a 90% os tial LAD with OMARI-2 flow, a 90% mid to proximal LAD, normal circumflex, left dominant, 70% proximal RCA, nondominant. There were no complications. Blood Loss: 5 mL. Postoperative Diagnosis: Severe coronary artery disease. Plan: For CABG. We will send the patient to [facility] today. I will start a heparin drip protocol af ter this StarClose is done. The case was discussed with the family, the patient, and Dr. Lechuga. MEAGHAN/MISTI Voice ID: [id number] Report ID: [id number]
[2021-04-11] MEDS: ALPRAZOLAM 0.5 MG TABLET PO PRN (14:36)
[2021-04-11] MEDS ORDERED: HEPARIN/D5W 25,000 UNIT/500 ML BAG IV SCH (15:00)
[2021-04-11 15:28] LABS: Basophils % 0.7 % (0-1.3); Hematocrit 44.7 % (39.6-49.0); Lymphocytes % 21.5 % (15.3-44.8); MPV 7.3 fL (7.6-11.3); RBC Red Blood Cell Count 5.02 M/uL (4.33-5.43)
[2021-04-11 15:31] LABS: Protime INR 1.11
[2021-04-11 17:58] VITALS: BP 136/72; TEMP 98
[2021-04-11 18:04] VITALS: O2SAT 94
== END 2021-04-11 20:13 | disposition short-term general hospital (02) | DRG 287 ==
LOC: ER 21:40 → 4TH 04-10 00:48 → OBSVTOIN 04-10 15:23
PROVIDERS: ADMIT Hospitalist; ATTEND Hospitalist
PROC: 4A023N7 Measurement of Cardiac Sampling and Pressure, Left Heart, Percutaneous Approach (ICD-10-PCS; principal; 2021-04-11)
PROC: B2111ZZ Fluoroscopy of Multiple Coronary Arteries using Low Osmolar Contrast (ICD-10-PCS; 2021-04-11)
DX: I25.110 Atherosclerotic heart disease of native coronary artery with unstable angina pectoris (principal); E78.5 Hyperlipidemia, unspecified; E11.9 Type 2 diabetes mellitus without complications; C61 Malignant neoplasm of prostate; K21.9 Gastro-esophageal reflux disease without esophagitis; I10 Essential (primary) hypertension; Z88.1 Allergy status to other antibiotic agents; Z88.5 Allergy status to narcotic agent; Z79.84 Long term (current) use of oral hypoglycemic drugs; Z79.899 Other long term (current) drug therapy; Z20.822 Contact with and (suspected) exposure to COVID-19
CPT/HCPCS: 36415; 71045; 80048; 80053; 80061; 80076; 82947; 83036; 83735; 83880; 84100; 84439; 84443; 84484; 85025; 85610; 85730; 93005; 93306; 93454; 94760; 96361; 96374; 99285; C1893; G0378; J0583; J1644; J1650; J2250; J3010; J7030; J7040; U0003

== ENCOUNTER 2021-06-13 12:31 | Emergency (ER) | payer BC, OTHER ==
[2021-06-13 15:31] LABS: Absolute Lymphocytes (CBC) 1.3 K/uL (0.7-4.9); Basophils % 0.4 % (0-1.3); Hematocrit 42.5 % (39.6-49.0); Lymphocytes % 19.3 % (15.3-44.8); MPV 7.5 fL (7.6-11.3); RBC Red Blood Cell Count 4.87 M/uL (4.33-5.43)
[2021-06-13 15:34] LABS: Protime INR 1.21
[2021-06-13 15:51] LABS: ALT/SGPT 43 U/L (12-78); AST/SGOT 33 U/L (15-37); Albumin 3.6 g/dL (3.4-5.0); Alkaline Phosphatase 82 U/L (45-117); BUN Blood Urea Nitrogen 12 mg/dL (7-18); Bicarbonate 30 mmol/L (21-32); Bilirubin Direct 0.1 mg/dL (0-0.2); Bilirubin Total 0.3 mg/dL (0.2-1.0); Glucose Level 165 mg/dL (74-106); Magnesium 2.3 mg/dL (1.8-2.4); NT PRO-BNP 909 pg/mL (<125); Potassium 4.2 mmol/L (3.5-5.1); Protein, Total 7.6 g/dL (6.4-8.2); Sodium Level 140 mmol/L (136-145); Troponin (Emerg Dept Use Only) < 0.02 ng/mL (0.0-0.045)
--- NOTE | 2021-06-13 16:08 | RAD REPORT ---
EXAM DESCRIPTION: Caroline Single View06/13/2021 3:25 pm CLINICAL HISTORY: Chest pain COMPARISON: May 27, 2021 FINDINGS: The lungs appear clear of acute infiltrate. The heart is mildly to moderately enlarged. Postsurgical changes involve the chest IMPRESSION: No acute abnormalities displayed
[2021-06-13] MEDS ORDERED: ONDANSETRON 4 MG/2 ML VIAL ONE (17:29)
--- NOTE | 2021-06-13 17:44 | RAD REPORT ---
EXAM DESCRIPTION: CT - Angio Aorta For Dissection - 06/13/2021 5:15 pm CLINICAL HISTORY: . Chest and abd pain / hypertension COMPARISON: 2009 TECHNIQUE: Computed tomography angiography of the chest, abdomen pelvis were obtained. 100 cc Isovue 370 was administered intravenously. Coronal and sagittal reconstruction were performed. MIP 3D reconstruction was performed All CT scans are performed using dose optimization technique as appropriate and may include automated exposure control or mA/KV adjustment according to patient size. FINDINGS: An aortic dissection is not seen. An aortic aneurysm is not displayed. The celiac, SMA and BIN are patent . A lung consolidation is not present. A pericardial effusion is not seen. A pleural effusion is not no aracelis. A 3 millimeter right lower lobe nodule probably benign 5 millimeter left lower lobe nodule unchanged is benign Cardiomegaly Fatty liver. Small renal cysts. Small to moderate left inguinal hernia contains fat. No evidence of diverticulitis. Small umbilical hernia A 17 millimeter lucency left humeral head with sclerotic border probably benign. Follow-up shoulder x -ray in 3 months recommended IMPRESSION: Negative for an aortic dissection. A 17 millimeter lucency left humeral head with sclerotic border probably benign. Follow-up shoulder x -ray in 3 months recommended
--- NOTE | 2021-06-13 18:05 | EDPHYS ---
Physician Documentation [facility] Name: Barrington Mary Age: 66 yrs Sex: Male : 1955 Arrival Date: 06/13/2021 Time: 12:33 Bed 3 Private MD: ED Physician Conrado Carr HPI: 06/13 18:07 This 66 yrs old Male presents to ER via Ambulatory with complaints of Back Pain, High kdr Blood Pressure - Heart PT. 18:08 Patient was sent from the dialysis center for evaluation of his blood pressure. Patient rico was noted to have elevated blood pressure at dialysis however he was asymptomatic. His only complaint there was unusual or different was of upper back pain between his shoulder blades. He does not have that on a regular basis but has had it from time to time. There is nothing new or different about this discomfort that he has today. He indicates that if he is just sitting normally that he sometimes has this discomfort higher up in his back again between his shoulder blades. Sometimes if he stretches to the right or left twisting his torso that will relieve the discomfort. Overall her discomfort is considered to be minor by the patient. Onset: The symptoms/episode began/occurred Discomfort occurs from time to time is not precipitated by any events but is made better by stretching to the right or left and twisting his torso. Severity of symptoms: At their worst the symptoms were very mild in the emergency department the symptoms are unchanged. The patient has not experienced similar symptoms in the past. Routine care. Historical: - Allergies: 13:41 Nubain; ss 13:41 Sulfa (Sulfonamide Antibiotics); ss - PMHx: 13:41 High Cholesterol; Hypertension; ss - PSHx: 13:41 CABG; ss - Immunization history:: Client reports receiving the 2nd dose of the Covid vaccine. - Social history:: Smoking status: Patient denies any tobacco usage or history of. ROS: 18:08 Constitutional: Negative for fever, chills, and weight loss, Eyes: Negative for injury, kdr pain, redness, and discharge, Neck: Negative for injury, pain, and swelling, Cardiovascular: Negative for chest pain, palpitations, and edema, Respiratory: Negative for shortness of breath, cough, wheezing, and pleuritic chest pain, Abdomen/GI: Negative for abdominal pain, nausea, vomiting, diarrhea, and constipation, : Negative for injury, bleeding, discharge, and swelling, MS/Extremity: Negative for injury and deformity, Skin: Negative for injury, rash, and discoloration, Neuro: Negative for headache, weakness, numbness, tingling, and seizure activity. Psych: Negative for depression, anxiety, suicide ideation, homicidal ideation, and hallucinations, Allergy/Immunology: Negative for hives, rash, and allergies, Endocrine: Negative for neck swelling, polydipsia, polyuria, polyphagia, and marked weight changes, Hematologic/Lymphatic: Negative for swollen nodes, abnormal bleeding, and unusual bruising. 18:08 Back: Positive for pain at rest. Exam: 18:08 Constitutional: This is a well developed, well nourished patient who is awake, alert, kdr and in no acute distress. Head/Face: Normocephalic, atraumatic. Eyes: Pupils equal round and reactive to light, extra-ocular motions intact. Lids and lashes normal. Conjunctiva and sclera are non-icteric and not injected. Cornea within normal limits. Periorbital areas with no swelling, redness, or edema. Neck: Trachea midline, no thyromegaly or masses palpated, and no cervical lymphadenopathy. Supple, full range of motion without nuchal rigidity, or vertebral point tenderness. No Meningismus. Chest/axilla: Normal chest wall appearance and motion. Nontender with no deformity. No lesions are appreciated. Cardiovascular: Regular rate and rhythm with a normal S1 and S2. No gallops, murmurs, or rubs. Normal PMI, no JVD. No pulse deficits. Respiratory: Lungs have equal breath sounds bilaterally, clear to auscultation and percussion. No rales, rhonchi or wheezes noted. No increased work of breathing, no retractions or nasal flaring. Abdomen/GI: Soft, non-tender, with normal bowel sounds. No distension or tympany. No guarding or rebound. No evidence of tenderness throughout. Back: No spinal tenderness. No costovertebral tenderness. Full range of motion. Skin: Warm, dry with normal turgor. Normal color with no rashes, no lesions, and no evidence of cellulitis. MS/ Extremity: Pulses equal, no cyanosis. Neurovascular intact. Full, normal range of motion. Neuro: Awake and alert, GCS 15, oriented to person, place, time, and situation. Cranial nerves II-XII grossly intact. Motor strength 5/5 in all extremities. Sensory grossly intact. Cerebellar exam normal. Normal gait. Psych: Awake, alert, with orientation to person, place and time. Behavior, mood, and affect are within normal limits. 18:11 ECG was reviewed by the Attending Physician. kdr Vital Signs: 13:39 BP 183 / 100; Pulse 71; Resp 16; Temp 97.7(TE); Pulse Ox 100% on R/A; Weight 103.87 kg; ss Height 5 ft. 8 in. (172.72 cm); Pain 0/10; 15:24 BP 186 / 101; Pulse 65; Resp 19; Pulse Ox 99% on R/A; ld1 16:39 BP 165 / 90; Pulse 63; Resp 12; Pulse Ox 99% on R/A; ld1 17:00 BP 163 / 83; Pulse 64; Resp 17 S; Pulse Ox 94% on R/A; jg9 18:00 BP 165 / 90; Pulse 64; Resp 17; Pulse Ox 99% on R/A; jg9 13:39 Body Mass Index 34.82 (103.87 kg, 172.72 cm) ss MDM: 18:04 Patient medically screened. kdr 18:08 Data reviewed: vital signs, nurses notes, lab test result(s), EKG, radiologic studies. kdr Counseling: I had a detailed discussion with the patient and/or guardian regarding: the historical points, exam findings, and any diagnostic results supporting the discharge/admit diagnosis, lab results, radiology results, the need for outpatient follow up. 06/13 15:09 Order name: Basic Metabolic Panel ld06/13 15:09 Order name: CBC with Diff ld06/13 15:09 Order name: LFT's ld06/13 15:09 Order name: Magnesium ld06/13 15:09 Order name: NT PRO-BNP; Complete Time: 16:02 ld06/13 15:09 Order name: PT-INR; Complete Time: 15:50 ld06/13 15:09 Order name: Troponin (emerg Dept Use Only); Complete Time: 16:02 06/13 15:09 Order name: XRAY Chest (1 view); Complete Time: 18:02 06/13 15:09 Order name: Basic Metabolic Panel; Complete Time: 16:02 EDMS 06/13 15:09 Order name: CBC with Automated Diff; Complete Time: 15:50 EDMS 06/13 15:09 Order name: Liver (Hepatic) Function; Complete Time: 16:02 EDMS 06/13 15:09 Order name: Magnesium; Complete Time: 16:02 EDMS 06/13 16:02 Order name: CT Aorta for Dissection; Complete Time: 18:02 kdr 06/13 15:09 Order name: EKG; Complete Time: 15:10 ld1 06/13 15:09 Order name: Cardiac monitoring; Complete Time: 15:09 ld1 06/13 15:09 Order name: EKG - Nurse/Tech; Complete Time: 15:18 ld1 06/13 15:09 Order name: IV Saline Lock; Complete Time: 15:34 ld1 06/13 15:09 Order name: Labs collected and sent; Complete Time: 15:34 ld1 06/13 15:09 Order name: O2 Per Protocol; Complete Time: 15: ld1 06/13 15:09 Order name: O2 Sat Monitoring; Complete Time: 15:09 ld1 EC:11 Rate is 63 beats/min. Rhythm is regular, Sinus Rhythm with No ectopy, Right bundle kdr branch block. QRS [place] is Normal. [place] interval is normal. QRS interval is normal. QT interval is normal. Clinical impression: NSR w/ Non-specific ST/T Changes. Administered Medications: 17:32 Not Given (Patient Refused): Zofran (Ondansetron) 4 mg IVP once; over 2 minutes jl7 Disposition Summary: 06/13/21 18:04 Discharge Ordered Location: Home kdr Problem: new kdr Symptoms: have improved kdr Condition: Stable kdr Diagnosis - Hypertensive heart disease without heart failure kdr - Upper back pain kdr Followup: kdr - With: Private Physician - When: 2 - 3 days - Reason: If symptoms return, Further diagnostic work-up, Recheck today's complaints, Continuance of care, Re-evaluation by your physician Discharge Instructions: - Discharge Summary Sheet kdr - Hypertension, Adult, [id number] kdr - How to Take Your Blood Pressure, [id number] kdr - Chronic Back Pain, [id number] kdr Forms: - Medication Reconciliation Form kdr - Thank You Letter kdr Signatures: Dispatcher [employer] EDMS Rittger, Conrado, MD MD kdr Radha Stokes RN RN ss Dawood Snyder RN RN jl7 Chelsey Swenson RN RN ld1 Mariela Parsong9
--- NOTE | 2021-06-13 18:05 | ER ---
Nurse's Notes [facility] Name: Barrington Mary Age: 66 yrs Sex: Male : 1955 Arrival Date: 06/13/2021 Time: 12:33 Bed 3 Private MD: Diagnosis: Hypertensive heart disease without heart failure;Upper back pain Presentation: 06/13 13:39 Chief complaint: Patient states: Sent from cardiac rehab for evaluation of high blood ss pressure. Pt believes he has not been taking his blood pressure medication since Thursday and that may be the issue. Coronavirus screen: Client denies travel out of the [place] in the last 14 days. Ebola Screen: Patient denies exposure to infectious person. Patient denies travel to an Ebola-affected area in the 21 days before illness onset. Initial Sepsis Screen: Does the patient meet any 2 criteria? No. Patient's initial sepsis screen is negative. Does the patient have a suspected source of infection? No. Patient's initial sepsis screen is negative. Risk Assessment: Do you want to hurt yourself or someone else? Patient reports no desire to harm self or others. Onset of symptoms is unknown. 13:39 Method Of Arrival: Ambulatory ss 13:39 Acuity: SHAI 2 ss Historical: - Allergies: 13:41 Nubain; ss 13:41 Sulfa (Sulfonamide Antibiotics); ss - PMHx: 13:41 High Cholesterol; Hypertension; ss - PSHx: 13:41 CABG; ss - Immunization history:: Client reports receiving the 2nd dose of the Covid vaccine. - Social history:: Smoking status: Patient denies any tobacco usage or history of. Screenin:24 Abuse screen: Denies threats or abuse. Denies injuries from another. Nutritional ld1 screening: No deficits noted. Tuberculosis screening: No symptoms or risk factors identified. Fall Risk None identified. Assessment: 15:24 General: Appears in no apparent distress. comfortable, Behavior is calm, cooperative, ld1 appropriate for age. Pain: Complains of pain in thoracic area Pain does not radiate. Pain currently is 3 out of 10 on a pain scale. Quality of pain is described as throbbing, Pain began gradually, Is intermittent. Neuro: Level of Consciousness is awake, alert, obeys commands, Oriented to person, place, time, situation, Appropriate for age. Cardiovascular: Capillary refill < 3 seconds Patient's skin is warm and dry. Rhythm is sinus rhythm. Respiratory: Airway is patent Respiratory effort is even, unlabored, Respiratory pattern is regular, symmetrical. GI: Abdomen is round non-distended. : No signs and/or symptoms were reported regarding the genitourinary system. EENT: No signs and/or symptoms were reported regarding the EENT system. Derm: No signs and/or symptoms reported regarding the dermatologic system. Musculoskeletal: Reports pain in thoracic area. Vital Signs: 13:39 BP 183 / 100; Pulse 71; Resp 16; Temp 97.7(TE); Pulse Ox 100% on R/A; Weight 103.87 kg; ss Height 5 ft. 8 in. (172.72 cm); Pain 0/10; 15:24 BP 186 / 101; Pulse 65; Resp 19; Pulse Ox 99% on R/A; ld1 16:39 BP 165 / 90; Pulse 63; Resp 12; Pulse Ox 99% on R/A; ld1 17:00 BP 163 / 83; Pulse 64; Resp 17 S; Pulse Ox 94% on R/A; jg9 18:00 BP 165 / 90; Pulse 64; Resp 17; Pulse Ox 99% on R/A; jg9 13:39 Body Mass Index 34.82 (103.87 kg, 172.72 cm) ss ED Course: 12:33 Patient arrived in ED. ds1 13:41 Triage completed. ss 13:41 Arm band placed on right wrist. ss 14:24 Conrado Carr MD is Attending Physician. kdr 15:24 Patient has correct armband on for positive identification. Placed in gown. Bed in low ld1 position. Call light in reach. Side rails up X2. teletypesetter monitor on. Pulse ox on. NIBP on. Door closed. Noise minimized. Warm blanket given. 15:24 No provider procedures requiring assistance completed. ld1 15:25 XRAY Chest (1 view) In Process Unspecified. EDMS 15:34 Liver (Hepatic) Function Sent. mh5 15:34 Magnesium Sent. mh5 15:34 Basic Metabolic Panel Sent. mh5 15:34 Basic Metabolic Panel Sent. mh5 15:34 CBC with Diff Sent. mh5 15:34 LFT's Sent. mh5 15:34 Magnesium Sent. mh5 15:34 NT PRO-BNP Sent. [facility] 15:34 PT-INR Sent. [facility] 15:34 Troponin (emerg Dept Use Only) Sent. [facility] 15:35 Initial lab(s) drawn, by ED staff, sent to lab. EKG done, by ED staff, reviewed by Shamika Carr MD. Inserted saline lock: 20 gauge in right antecubital area, using aseptic technique. Blood collected. 15:37 Chelsey Swenson, RN is Primary Nurse. ld1 17:15 CT Aorta for Dissection In Process Unspecified. EDMS 18:36 IV discontinued. jg9 Administered Medications: 17:32 Not Given (Patient Refused): Zofran (Ondansetron) 4 mg IVP once; over 2 minutes jl7 Outcome: 18:04 Discharge ordered by . [facility] 18:36 Discharged to home ambulatory, with family. jg9 18:36 Condition: stable 18:36 Discharge instructions given to patient, Instructed on discharge instructions, follow up and referral plans. Demonstrated understanding of instructions, follow-up care. 18:38 Patient left the ED. jg9 Signatures: Dispatcher [employer] EDDC Conrado Carr MD MD kdr Sanford, Demi ds1 Radha Stokes, NATALIE RN Carey Warren [facility] Chelsey Swenson, RN RN ld1 Mariela Parson jg9 Dawood Snyder RN jl7
[2021-06-13 18:46] VITALS: TEMP 97.7
[2021-06-13 18:51] VITALS: BP 165/90; O2SAT 99
== END 2021-06-13 18:38 | disposition home or self-care (01) ==
LOC: ER 12:31
DX: I11.9 Hypertensive heart disease without heart failure (principal); I10 Essential (primary) hypertension; Z95.1 Presence of aortocoronary bypass graft; Z88.2 Allergy status to sulfonamides; Z88.8 Allergy status to other drugs, medicaments and biological substances
CPT/HCPCS: 93005; 85025; 80048; 36415; 83735; 85610; 80076; 84484; 83880; 71275; 74175; 71045; 99284; Q9967; J2405

== ENCOUNTER 2021-07-01 11:56 | Day surgery (SDC) | payer BC, OTHER ==
[2021-06-28 13:43] LABS: Absolute Lymphocytes (CBC) 1.2 K/uL (0.7-4.9); Hematocrit 46.9 % (39.6-49.0); Lymphocytes % 16.6 % (15.3-44.8); MPV 7.7 fL (7.6-11.3); RBC Red Blood Cell Count 5.37 M/uL (4.33-5.43)
[2021-06-28 13:48] LABS: Protime INR 1.4
[2021-06-28 14:05] LABS: Potassium 4.1 mmol/L (3.5-5.1)
[2021-07-01] MEDS ORDERED: NA CHLORIDE 0.9% 500 ML ONE ×2 (12:10→14:22)
[2021-07-01 12:17] VITALS: TEMP 97
[2021-07-01] MEDS ORDERED: FENTANYL CITR 100 MCG/2 ML ONE (12:36)
[2021-07-01] MEDS ORDERED: MIDAZOLAM HCL 2 MG/2 ML INJ ONE ×2 (12:36→13:11)
[2021-07-01] MEDS ORDERED: VERAPAMIL HCL 10 MG/4 ML VIAL IV ONE (12:36)
[2021-07-01] MEDS ORDERED: NITROGLYCERIN 100 MCG/ML SYR (for cath lab use only) IV ONE (12:36)
[2021-07-01] MEDS ORDERED: ATROPINE SULF 1 MG/10 ML SYR IV ONE (12:36)
[2021-07-01] MEDS ORDERED: HEPARIN 5000 UNIT/ML 1 ML VIAL ONE (12:36)
[2021-07-01] MEDS ORDERED: HEPA 1000U/500MLS 2,000 UNIT/1,000 ML BAG IV ONE ×2 (12:37→13:46)
[2021-07-01] MEDS ORDERED: TICAGRELOR 90 MG TABLET PO ONE (13:30)
--- NOTE | 2021-07-01 16:38 | OP ---
Date of Procedure: 07/01/2021 Surgeon: ALEXIS OLGUIN Procedures Performed: 1.Selective coronary angiogram with bypass graft study. 2.PCI of severe distal SALAMANCA graft stenosis using 2.5 x 12 mm and then distally to a 2.5 x 8 mm Syner gy drug-eluting stent overlapped with it. 3.PCI of proximal SALAMANCA graft due to dye catheter-induced dissection, used mm Synergy drug -eluting stent. Access: Right femoral artery closed with 6-Moroccan Angio-Seal. Complications: None. Bleeding: Less than 20 mL. Description Of Procedure: After risks, benefits, and alternatives were explained, the patient agreed to the procedure and signed informed consent. The patient was brought to the cardiac catheterizatio n laboratory, prepped and draped in usual sterile fashion. Then, we accessed the right femoral arter y using micropuncture kit, ultrasound and fluoroscopy and placed a 6-Moroccan [employer] sheath and then took a 6-Moroccan JR4 catheter into the aortic root, engaged the right coronary artery and SVG to RCA a nd same catheter was used to engage the SALAMANCA to LAD and standard views were obtained. Then, we excha nged for 6-Moroccan JL4 catheter and then engaged left main, took standard views and then we moved to t he interventional part. Intervention Details: We gave systemic heparin to assure ACT level above 250 throughout the procedur e, loaded with 180 mg of Brilinta, and the patient received aspirin this morning already. Then, I to ok a 6-Moroccan BIN guide into the left subclavian artery, engaged the SALAMANCA graft to Run-Through wire a nd immediately after engaging it, seems like dissection happened in the proximal part of the SALAMANCA, wh ich was treated adequately with a mm Synergy drug-eluting stent, established OMARI-3 flow i mmediately. Then, the wire was advanced off the SALAMANCA graft into the distal LAD and used a 2.5 x 12 m m balloon to pre-dilate the lesion and then placed a 2.5 x 12 mm Synergy drug-eluting stent; however, there were some mild concerns, so I placed another 2.5 x 8 mm stent, overlapped with the first one _ were perfect. After the procedure, the wire was removed and final angiogram was satisfacto ry. The patient tolerated the procedure very well. The guide was removed and the sheath was removed and placed a 6-Moroccan Angio-Seal with good hemostasis. Findings: 1.Left main; large and normal. 2.LAD is large with proximal long diffuse 80% stenosis and mid 99% stenosis. 3.Left circumflex is large and normal. 4.RCA; diffuse mid 80% stenosis. Grafts: 1.Patent SVG graft to distal RCA. 2.Patent SALAMANCA to LAD with severe stenosis distally before the anastomosis and there was approximatel y 95% stenosis, status post successful PCI as above. Conclusions: 1.Severe [place] coronary artery disease as above. 2.Severe distal SALAMANCA stenosis, status post successful PCI as above. Plan: Brilinta, aspirin, and high-dose statin. Follow up with me in the office in 1 week. /MISTI Voice ID: [id number] Report ID: [id number]
[2021-07-01 17:01] VITALS: O2SAT 100
[2021-07-01 19:32] VITALS: BP 145/56
== END 2021-07-01 18:40 | disposition home or self-care (01) ==
LOC: CCL 11:56
PROVIDERS: ATTEND Internal Medicine
DX: I25.810 Atherosclerosis of coronary artery bypass graft(s) without angina pectoris (principal); I25.118 Atherosclerotic heart disease of native coronary artery with other forms of angina pectoris; I97.51 Accidental puncture and laceration of a circulatory system organ or structure during a circulatory system procedure; Y65.8 Other specified misadventures during surgical and medical care; Y71.0 Diagnostic and monitoring cardiovascular devices associated with adverse incidents; Y92.234 Operating room of hospital as the place of occurrence of the external cause; I48.91 Unspecified atrial fibrillation; I10 Essential (primary) hypertension; I47.1 Supraventricular tachycardia; E78.5 Hyperlipidemia, unspecified; Z79.01 Long term (current) use of anticoagulants; Z79.82 Long term (current) use of aspirin; Z79.899 Other long term (current) drug therapy; Z88.2 Allergy status to sulfonamides; Z88.6 Allergy status to analgesic agent; Z20.822 Contact with and (suspected) exposure to COVID-19
CPT/HCPCS: 85025; 80048; 36415; 85610; 85347 ×3; 85730; 93455; 92937; U0002; U0003; C1893; C1760; C1725; C1887; J1644 ×3; J2250; J3010; J7040 ×2; C9604

== ENCOUNTER 2023-12-19 07:04 | Emergency (ER) | payer OTHER ==
[2023-12-19] MEDS ORDERED: HYDROCODONE/APAP 10/325 TAB ONE (07:25)
--- NOTE | 2023-12-19 08:44 | RAD REPORT ---
EXAM DESCRIPTION: Shoulder Right 2 View - 12/19/2023 7:54 am CLINICAL HISTORY: PAIN COMPARISON: No comparisons TECHNIQUE: Internal and external rotation views of the right shoulder were obtained. FINDINGS: There is no fracture or dislocation. At least moderate degenerative changes of glenohumera l and AC joints. . No acute or suspicious findings. IMPRESSION: No acute osseus abnormality. Degenerative changes as above.
--- NOTE | 2023-12-19 09:03 | EDPHYS ---
Physician Documentation [facility] Name: Barrington Mary Age: 68 yrs Sex: Male : 1955 Arrival Date: 12/19/2023 Time: 07:04 Bed 5 Private MD: ED Physician Blake Gerardo HPI: 12/18 07:30 This 68 yrs old Male presents to ER via Ambulatory with complaints of Fall Injury, rn Shoulder Pain, Shoulder Injury. 07:30 Details of fall: The patient fell from an upright position, while walking. Onset: The rn symptoms/episode began/occurred just prior to arrival. Associated injuries: The patient sustained Right shoulder. Severity of symptoms: At their worst the symptoms were moderate, in the emergency department the symptoms are unchanged. The patient has not experienced similar symptoms in the past. The patient has not recently seen a physician. Patient reports tripped and fell onto right shoulder, arm was tucked and and reports isolated pain to the right shoulder. Denies clavicular injury or pain. No rib injury. No hand/wrist/forearm/elbow pain.. Historical: - Allergies: 07:21 Nubain; hb 07:21 Sulfa (Sulfonamide Antibiotics); hb - Home Meds: 07:21 Xarelto oral [Active]; metoprolol succinate oral [Active]; aspirin 81 mg Oral hb tablet,chewable [Active]; pantoprazole oral [Active]; metformin Oral [Active]; rosuvastatin oral [Active]; amlodipine-valsartan oral [Active]; Hydrochlorothiazide Oral [Active]; - PMHx: 07:21 High Cholesterol; Hypertension; hb - PSHx: 07:21 CABG; hb - Immunization history:: Adult Immunizations up to date. - Infectious Disease History:: Denies. - Social history:: Smoking status: Patient denies any tobacco usage or history of. - Family history:: not pertinent. - Hospitalizations: : No recent hospitalization is reported. ROS: 07:30 Constitutional: Negative for fever, chills, and weight loss, Neck: Negative for injury, rn pain, and swelling, Cardiovascular: Negative for chest pain, palpitations, and edema, Respiratory: Negative for shortness of breath, cough, wheezing, and pleuritic chest pain, Abdomen/GI: Negative for abdominal pain, nausea, vomiting, diarrhea, and constipation, Back: Negative for injury and pain, MS/Extremity: Positive for pain to the right shoulder Neuro: Negative for headache, weakness, numbness, tingling, and seizure, Exam: 07:30 Constitutional: This is a well developed, well nourished patient who is awake, alert, rn and in no acute distress. Ambulatory to room without difficulty or assistance Head/Face: Normocephalic, atraumatic. Respiratory: No increased work of breathing, no retractions or nasal flaring. MS/ Extremity: Pulses equal, no cyanosis. Neurovascular intact. Mild tenderness over right shoulder. No gross deformity. No clavicular tenderness. No humeral tenderness. No tenderness or deformity of the right elbow/forearm/hand Neuro: Awake and alert, GCS 15 Vital Signs: 07:20 BP 146 / 70; Pulse 79; Resp 16; Temp 97.2; Pulse Ox 100% on R/A; Weight 104.33 kg; hb Height 5 ft. 8 in. ; Pain 10/10; 07:33 Pulse 70; Resp 18; Pulse Ox 96% on R/A; Pain 10/10; ld1 09:40 BP 139 / 64; Pulse 74; Resp 18; Pulse Ox 97% on R/A; Pain 8/10; ld1 07:20 Body Mass Index 34.97 (104.33 kg, 172.72 cm) hb 07:20 Pain Scale: Adult hb 07:33 Pain Scale: Adult ld1 09:40 Pain Scale: Adult ld1 MDM: 07:12 Patient medically screened. rn 09:01 Differential diagnosis: contusion, fracture, sprain, strain. Data reviewed: vital rn signs, nurses notes, radiologic studies, plain films, and as a result, I will discharge patient. Counseling: I had a detailed discussion with the patient and/or guardian regarding the historical points, exam findings, and any diagnostic results supporting the discharge/admit diagnosis, radiology results, the need for outpatient follow up, to return to the emergency department if symptoms worsen or persist or if there are any questions or concerns that arise at home. Special discussion: I discussed with the patient/guardian in detail that at this point there is no indication for admission to the hospital. It is understood, however, that if the symptoms persist or worsen the patient needs to return immediately for re-evaluation. Based on the history and exam findings, there is no indication for further emergent testing or inpatient evaluation. I discussed with the patient/guardian the need to see the orthopedic surgeon for further evaluation of the symptoms. ED course: X-ray right shoulder shows possible fracture per my interpretation. Radiologist does not believe there is a fracture. Will sling and have patient follow-up with orthopedics anyway. I have personally reviewed all of the results, including but not limited to imaging deemed necessary to safely discharge this patient at this time. All results given to and printed out for patient. I personally went over all the results with the patient and answered all questions. Patient will follow-up with PCP and or specialist as discussed. Return precautions given and understood.. 12/18 07:23 Order name: XRAY Shoulder RIGHT 2 view; Complete Time: 08:50 rn 12/18 08:00 Order name: Sling; Complete Time: 09:40 rn Administered Medications: 07:32 Drug: [place] PO 10 mg-325 mg 1 tabs PO once Route: PO; ld1 Disposition Summary: 12/19/23 09:03 Discharge Ordered Notes: Location: Home rn Problem: new rn Symptoms: have improved rn Condition: Stable rn Diagnosis - Pain in right shoulder rn - Contusion of right shoulder rn Followup: rn - With: Nickolas Pacheco MD - When: 5 - 6 days - Reason: Recheck today's complaints, Re-evaluation by your physician Discharge Instructions: - Discharge Summary Sheet rn - Contusion rn - Humerus Fracture Treated With Immobilization rn - Shoulder Pain rn - How to Use a Sling rn Forms: - Medication Reconciliation Form rn - Antibiotic furnace tender - Prescription Opioid Use rn - Patient Portal Instructions rn - Leadership Thank You Letter rn Prescriptions: - Tramadol 50 mg Oral tablet - take 1 tablet ORAL route every 8 hours As needed as needed; 15 tablet; Refills: rn 0, Product Selection Permitted Signatures: Dispatcher [employer] Blake Marques MD MD rn Baxter, Heather, RN RN hb Sims, Lauren, RN RN ld1
--- NOTE | 2023-12-19 09:03 | ER ---
Nurse's Notes [facility] Name: Barrington Mary Age: 68 yrs Sex: Male : 1955 Arrival Date: 12/19/2023 Time: 07:04 Bed 5 Private MD: Diagnosis: Pain in right shoulder;Contusion of right shoulder Presentation: 12/18 07:20 Chief complaint: Right shoulder pain 10/10 after mechanical fall from standing at 0630 hb today. Coronavirus screen: At this time, the client does not indicate any symptoms associated with coronavirus-19. Ebola Screen: No symptoms or risks identified at this time. Initial Sepsis Screen: Does the patient meet any 2 criteria? No. Patient's initial sepsis screen is negative. Does the patient have a suspected source of infection? No. Patient's initial sepsis screen is negative. Risk Assessment: Do you want to hurt yourself or someone else? Patient reports no desire to harm self or others. Onset of symptoms was December 19, 2023 at 06:30. 07:20 Method Of Arrival: Ambulatory 07:20 Acuity: SHAI 3 hb Triage Assessment: 07:26 General: Appears in no apparent distress. uncomfortable, Behavior is calm, cooperative. hb Pain: Pain currently is 10 out of 10 on a pain scale. Neuro: Level of Consciousness is awake, alert, obeys commands, Oriented to person, place, time, situation. Cardiovascular: Patient's skin is warm and dry. Respiratory: Respiratory effort is even, unlabored, Respiratory pattern is regular, symmetrical. Musculoskeletal: Reports severe right shoulder pain. Historical: - Allergies: 07:21 Nubain; hb 07:21 Sulfa (Sulfonamide Antibiotics); hb - Home Meds: 07:21 Xarelto oral [Active]; metoprolol succinate oral [Active]; aspirin 81 mg Oral hb tablet,chewable [Active]; pantoprazole oral [Active]; metformin Oral [Active]; rosuvastatin oral [Active]; amlodipine-valsartan oral [Active]; Hydrochlorothiazide Oral [Active]; - PMHx: 07:21 High Cholesterol; Hypertension; hb - PSHx: 07:21 CABG; hb - Immunization history:: Adult Immunizations up to date. - Infectious Disease History:: Denies. - Social history:: Smoking status: Patient denies any tobacco usage or history of. - Family history:: not pertinent. - Hospitalizations: : No recent hospitalization is reported. Screenin:34 [facility] ED Fall Risk Assessment (Adult) History of falling in the last 3 months, ld1 including since admission Yes- single mechanical fall (1 pt) Confusion or Disorientation No (0 pts) Intoxicated or Sedated No (0 pts) Impaired Gait No (0 pts) Mobility Assist Device Used No (0 pt) Altered Elimination No (0 pt) Score/Fall Risk Level 0 - 2 = Low Risk Oriented to surroundings, Maintained a safe environment, Educated pt \T\ family on fall prevention, incl call for assistance when getting out of bed, Assessed \T\ reinforced patient's understanding of fall precautions, Provided non-skid footwear, Hourly rounding (assess needs \T\ fall precautionary measures) done, Used ambulatory aids as needed (educated on \T\ assisted with), Used gait belt as appropriate. Abuse screen: Denies threats or abuse. Denies injuries from another. Nutritional screening: No deficits noted. Tuberculosis screening: No symptoms or risk factors identified. Assessment: 07:33 General: Appears in no apparent distress. comfortable, Behavior is calm, cooperative, ld1 appropriate for age. Pain: Complains of pain in anterior aspect of right shoulder Pain does not radiate. Pain currently is 10 out of 10 on a pain scale. Quality of pain is described as throbbing, Pain began suddenly, Is continuous. Neuro: Level of Consciousness is awake, alert, obeys commands, Oriented to person, place, time, situation, Appropriate for age. Cardiovascular: Capillary refill < 3 seconds Patient's skin is warm and dry. Respiratory: Airway is patent Respiratory effort is even, unlabored. GI: Abdomen is round non-distended. : No signs and/or symptoms were reported regarding the genitourinary system. EENT: No signs and/or symptoms were reported regarding the EENT system. Derm: No signs and/or symptoms reported regarding the dermatologic system. Musculoskeletal: No signs and/or symptoms reported regarding the musculoskeletal system. 09:40 Reassessment: Patient appears in no apparent distress at this time. No changes from ld1 previously documented assessment. Vital Signs: 07:20 BP 146 / 70; Pulse 79; Resp 16; Temp 97.2; Pulse Ox 100% on R/A; Weight 104.33 kg; hb Height 5 ft. 8 in. ; Pain 10/10; 07:33 Pulse 70; Resp 18; Pulse Ox 96% on R/A; Pain 10/10; ld1 09:40 BP 139 / 64; Pulse 74; Resp 18; Pulse Ox 97% on R/A; Pain 8/10; ld1 07:20 Body Mass Index 34.97 (104.33 kg, 172.72 cm) hb 07:20 Pain Scale: Adult hb 07:33 Pain Scale: Adult ld1 09:40 Pain Scale: Adult ld1 ED Course: 07:08 Patient arrived in ED. gm2 07:12 Blake Gerardo MD is Attending Physician. rn 07:21 Triage completed. hb 07:24 Chelsey Staley, NATALIE is Primary Nurse. ld1 07:26 Arm band placed on. hb 07:34 Patient has correct armband on for positive identification. Placed in gown. Bed in low ld1 position. Call light in reach. Side rails up X2. Pulse ox on. NIBP on. Notified Nurse Practitioner and/or Physician Sales Operations Assistant of. Door closed. Noise minimized. Warm blanket given. 07:34 No provider procedures requiring assistance completed. ld1 07:55 XRAY Shoulder RIGHT 2 view In Process Unspecified. EDMS 09:02 Nickolas Pacheco MD is Referral Physician. rn 09:41 Patient did not have IV access during this emergency room visit. ld1 Administered Medications: 07:32 Drug: [place] PO 10 mg-325 mg 1 tabs PO once Route: PO; ld1 Medication: 07:34 VIS not applicable for this client. ld1 Outcome: 09:03 Discharge ordered by . rn 09:40 Discharged to home ambulatory, with family, ld1 09:40 Condition: stable 09:40 Discharge instructions given to patient, Instructed on discharge instructions, follow up and referral plans. medication usage, Demonstrated understanding of instructions, follow-up care, medications, Prescriptions given X 1, 09:41 Patient left the ED. ld1 Signatures: Dispatcher [employer] EDMS Blake Gerardo MD MD rn Baxter, Heather, RN RN Chelsey Staley RN RN ld1 Isha Richard gm2 Corrections: (The following items were deleted from the chart) 07:26 07:20 BP 146 / 70; Pulse 79bpm; Resp 16bpm; Pulse Ox 100%; Temp 97.2F; Pain 10/10, hb Adult; hb
[2023-12-19 09:55] VITALS: BP 139/64; TEMP 97.2; O2SAT 97
== END 2023-12-19 09:41 | disposition home or self-care (01) ==
LOC: ER 07:04
DX: S40.011A Contusion of right shoulder, initial encounter (principal); W01.0XXA Fall on same level from slipping, tripping and stumbling without subsequent striking against object, initial encounter
CPT/HCPCS: 99284

== ENCOUNTER 2024-10-17 05:33 | Emergency (ER) | payer OTHER ==
[2024-10-17] MEDS ORDERED: LIDOCAINE VISCOUS 2% 10ML ORAL SOLN ONE (06:00)
[2024-10-17] MEDS ORDERED: MAGNES/ALUMIN/SIMET 30ML UCUP ONE (06:00)
[2024-10-17] MEDS ORDERED: FAMOTIDINE 20 MG/2 ML VIAL IV ONE (06:00)
[2024-10-17 06:13] LABS: Absolute Eosinophils 0.1 K/uL (0-0.5); Absolute Lymphocytes (CBC) 0.7 K/uL (0.7-4.9); Absolute Monocytes 0.4 K/uL (0.1-1.3); Absolute Neutrophil 6.1 K/uL (1.8-8.0); Basophils % 0.2 % (0-1.3); Eosinophils % 0.9 % (0-4.4); Hematocrit 41.2 % (39.6-49.0); Hemoglobin 14.7 g/dL (13.6-17.9); Lymphocytes % 9.8 % (15.3-44.8); MCH 31.1 pg (27.0-35.0); MCHC 35.6 g/dL (32.0-36.0); MCV 87.3 fL (80-100); MPV 7.5 fL (7.6-11.3); Monocytes % 6.1 % (3.3-12.3); Nucleated Red Blood Cells % 0.1 % (0-0); Platelets 125 thou/uL (152-406); RBC Red Blood Cell Count 4.72 M/uL (4.33-5.43); Red Cell Distribution Width 13.4 % (12.1-15.2)
[2024-10-17 06:29] LABS: Albumin 3.9 g/dL (3.4-5.0); Anion Gap 7.7 mEq/L (5.0-15.0); Bilirubin Total 0.4 mg/dL (0.2-1.0); Globulin 3.8 g/dL (2.3-3.5); Potassium 3.7 mEq/L (3.5-5.1); Protein, Total 7.7 g/dL (6.4-8.2); Troponin High Sensitivity 10.8 pg/mL (<58.9)
--- NOTE | 2024-10-17 07:48 | RAD REPORT ---
EXAMINATION: CT ABDOMEN AND PELVIS WITHOUT CONTRAST CLINICAL INDICATION: ABD PAIN TECHNIQUE: CT abdomen and pelvis was performed, without IV contrast, as per department protocol. Axia l, sagittal and coronal reconstructions were obtained. One or more of the following dose reduction techniques were used: Automated exposure control, adjustment of the mA and kV according to the patien t size, and iterative reconstruction. Unless otherwise specified, incidental findings do not require dedicated imaging follow-up. COMPARISON: 06/13/2021 FINDINGS: The lack of intravenous contrast limits the sensitivity of this exam for evaluation of solid visceral organs, vascular structures, and retroperitoneum. LOWER CHEST: The visualized lung bases are clear. Small hiatal hernia. LIVER:Normal in size and contour. No focal lesion. Cholelithiasis. SPLEEN: Normal size. No focal lesion. PANCREAS: No mass, ductal dilation, or mayuri-pancreatic fluid. ADRENALS: Normal; no mass. KIDNEYS AND URETERS: Normal size and contour. No hydronephrosis. Bilateral exophytic renal cysts, kimberlyn ign in appearance. URINARY BLADDER: Normal contour. GASTROINTESTINAL TRACT: No evidence of bowel obstruction, significant free fluid, free air or abscess . Small fat-containing umbilical hernia. Mild sigmoid diverticulosis coli. No diverticulitis findings. APPENDIX: Appendix not visualized, but no inflammatory changes in region of appendix. LYMPH NODES: No lymphadenopathy. MUSCULOSKELETAL: Mild multilevel spinal degenerative changes. ADDITIONAL FINDINGS: Moderate fat-containing left inguinal hernia. IMPRESSION: No acute or concerning abnormalities in the abdomen or pelvis, with evaluation limited by lack of IV contrast. Cholelithiasis.
--- NOTE | 2024-10-17 07:59 | ER ---
Nurse's Notes [facility] Name: Barrington Mary Age: 69 yrs Sex: Male : 1955 Arrival Date: 10/17/2024 Time: 05:33 Bed 8 Private MD: Diagnosis: Abdominal pain, Generalized;Essential (primary) hypertension;Other cholelithiasis without obstruction Presentation: 10/17 05:41 Chief complaint: Patient states: WOKE UP FEELING LIKE STOMACH IS ON FIRE, NAUSEA, AND ha1 VOMITING. 05:41 Coronavirus screen: Client denies travel out of the [place] in the last 14 days. Ebola ha1 Screen: No symptoms or risks identified at this time. Initial Sepsis Screen: Does the patient meet any 2 criteria? No. Patient's initial sepsis screen is negative. Does the patient have a suspected source of infection? No. Patient's initial sepsis screen is negative. Risk Assessment: Do you want to hurt yourself or someone else? Patient reports no desire to harm self or others. Onset of symptoms was October 17, 2024. 05:41 Method Of Arrival: Ambulatory ha1 05:41 Acuity: SHAI 3 ha1 Triage Assessment: 05:41 General: Appears uncomfortable, Behavior is cooperative. Pain: Complains of pain in ha1 abdomen Pain does not radiate. Pain currently is 9 out of 10 on a pain scale. Quality of pain is described as burning. Neuro: Level of Consciousness is awake, alert, obeys commands, Oriented to person, place, time, situation. Cardiovascular: Patient's skin is warm and dry. Respiratory: Airway is patent Respiratory effort is even, unlabored, Respiratory pattern is regular, symmetrical. GI: Abdomen is round non-distended, Bowel sounds present X 4 quads. Reports lower abdominal pain, upper abdominal pain, nausea, vomiting. : No signs and/or symptoms were reported regarding the genitourinary system. Musculoskeletal: Circulation, motion, and sensation intact. Historical: - Allergies: 05:41 Nubain; ha1 05:41 Sulfa (Sulfonamide Antibiotics); ha1 - Home Meds: 05:41 pantoprazole oral [Active]; Xarelto oral [Active]; Metformin Oral [Active]; ha1 - PMHx: 05:41 High Cholesterol; Hypertension; Diabetes mellitus; ha1 - PSHx: 05:41 CABG; ha1 - Immunization history:: Adult Immunizations not up to date. - Infectious Disease History:: Denies. - Social history:: Smoking status: Patient denies any tobacco usage or history of. - Family history:: not pertinent. Screenin:57 [facility] ED Fall Risk Assessment (Adult) History of falling in the last 3 months, cp4 including since admission No falls in past 3 months (0 pts) Confusion or Disorientation No (0 pts) Intoxicated or Sedated No (0 pts) Impaired Gait No (0 pts) Mobility Assist Device Used No (0 pt) Altered Elimination No (0 pt) Score/Fall Risk Level 0 - 2 = Low Risk Oriented to surroundings, Maintained a safe environment, Assessed \T\ reinforced patient's understanding of fall precautions, Hourly rounding (assess needs \T\ fall precautionary measures) done. Abuse screen: Denies threats or abuse. Denies injuries from another. Nutritional screening: No deficits noted. Tuberculosis screening: No symptoms or risk factors identified. Assessment: 05:55 General: Appears in no apparent distress. uncomfortable, Behavior is calm, cooperative, cp4 appropriate for age. 05:56 General: Appears. Pain: Complains of pain in abdomen Pain radiates to back Pain cp4 currently is 9 out of 10 on a pain scale. Neuro: Level of Consciousness is awake, alert, obeys commands, Oriented to person, place, time, situation. Cardiovascular: Patient's skin is warm and dry. Respiratory: Airway is patent Respiratory effort is even, unlabored. GI: Abdomen is round non-distended, Bowel sounds present X 4 quads. Abd is soft and non tender X 4 quads. Reports nausea, vomiting. : No signs and/or symptoms were reported regarding the genitourinary system. EENT: No signs and/or symptoms were reported regarding the EENT system. Derm: No signs and/or symptoms reported regarding the dermatologic system. Musculoskeletal: No signs and/or symptoms reported regarding the musculoskeletal system. 07:18 Reassessment: Patient is alert, oriented x 3, equal unlabored respirations, skin ap3 warm/dry/pink. Patient states symptoms have improved. General: Appears in no apparent distress. comfortable, Behavior is calm, cooperative, appropriate for age. Neuro: Level of Consciousness is awake, alert, obeys commands, Oriented to person, place, time, situation. Cardiovascular: Patient's skin is warm and dry. Respiratory: Airway is patent Respiratory effort is even, unlabored. 07:19 Reassessment: No changes from previously documented assessment. Patient and/or family ll1 updated on plan of care and expected duration. Pain level reassessed. Vital Signs: 05:41 BP 155 / 73; Pulse 64; Resp 17; Temp 98.4; Pulse Ox 98% on R/A; Weight 93.89 kg; Height ha1 5 ft. 8 in. ; Pain 9/10; 06:45 BP 145 / 70; Pulse 67; Resp 18; Pulse Ox 97% ; cp4 07:18 BP 144 / 84; Pulse 66; Resp 17; Pulse Ox 97% ; Pain 0/10; ll1 08:05 BP 137 / 67; Pulse 69; Resp 16; Pulse Ox 96% ; Pain 0/10; ll1 05:41 Body Mass Index 31.47 (93.89 kg, 172.72 cm) ha1 05:41 Pain Scale: Adult ha1 07:18 Pain Scale: Adult ll1 08:05 Pain Scale: Adult ll1 ED Course: 05:36 Patient arrived in ED. gm2 05:41 Mookie Judd MD is Attending Physician. rt 05:50 Triage completed. ha1 05:55 Gloria Sánchez is Primary Nurse. cp4 05:55 No provider procedures requiring assistance completed. Initial lab(s) drawn, by dc, cp4 sent to lab. Inserted saline lock: 20 gauge in right antecubital area, using aseptic technique. Blood collected. Flushed with 10 mL NS. 05:57 Bed in low position. Call light in reach. Side rails up X 1. cp4 06:55 Abdomen In Process Unspecified. EDMS 07:19 Arm band placed on right wrist. ap3 07:20 Provided Education on: ER procedures and process. ll1 07:22 Attending Physician role handed off by Mookie Judd MD ms3 07:22 Jethro Staley DO is Attending Physician. ms3 07:58 Arjun Garcia DO is Referral Physician. ms3 08:05 IV discontinued, intact, bleeding controlled, No redness/swelling at site. Pressure ll1 dressing applied. Administered Medications: 06:05 Drug: Famotidine IVP 20 mg IVP once; dilute with 10 mL 0.9% NaCl; give over 2 minutes cp4 Route: IVP; Site: right antecubital; 06:45 Follow up: Response: No adverse reaction cp4 06:05 Drug: GI Cocktail without - (Maalox PO 30 ml, Lidocaine Mucous Membrane 2 % 15 cp4 ml) PO once Route: PO; 06:45 Follow up: Response: No adverse reaction cp4 Medication: 05:57 VIS not applicable for this client. cp4 Outcome: 07:58 Discharge ordered by . ms3 08:06 Patient left the ED. ll1 08:06 Discharged to home ambulatory, ll1 08:06 Condition: stable 08:06 Discharge instructions given to patient, Instructed on discharge instructions, follow up and referral plans. Demonstrated understanding of instructions, follow-up care, Prescriptions given X Signatures: Dispatcher [employer] EDMS Ermelinda Encarnacion RN RN ap3 Hank Jaramillo RN RN ll1 Jethro Staley DO DO ms3 Lore Troy RN RN ha1 Mookie Judd MD MD rt Potter, Christina cp4 Isha Richard 2
--- NOTE | 2024-10-17 07:59 | EDPHYS ---
Physician Documentation [facility] Name: Barrington Mary Age: 69 yrs Sex: Male : 1955 Arrival Date: 10/17/2024 Time: 05:33 Bed 8 Private MD: ED Physician Jethro Staley HPI: 10/17 06:17 This 69 yrs old Male presents to ER via Ambulatory with complaints of Nausea/Vomiting, rt pt states stomach is on fire. 06:17 Patient presents to the ED with an epigastric pain which she describes as a fiery rt sensation that occurred last night at about 1 AM. The patient reports nausea with 1 episode of vomiting. Denies any ongoing nausea. Denies chest pain, shortness of breath. Denies other acute complaints at this time, symptoms are moderate in severity, no other aggravating or alleviating factors.. Historical: - Allergies: 05:41 Nubain; ha1 05:41 Sulfa (Sulfonamide Antibiotics); ha1 - Home Meds: 05:41 pantoprazole oral [Active]; Xarelto oral [Active]; Metformin Oral [Active]; ha1 - PMHx: 05:41 High Cholesterol; Hypertension; Diabetes mellitus; ha1 - PSHx: 05:41 CABG; ha1 - Immunization history:: Adult Immunizations not up to date. - Infectious Disease History:: Denies. - Social history:: Smoking status: Patient denies any tobacco usage or history of. - Family history:: not pertinent. ROS: 06:17 Constitutional: Negative for fever, chills, and weight loss, Cardiovascular: Negative rt for chest pain, palpitations, and edema, Respiratory: Negative for shortness of breath, cough, wheezing, and pleuritic chest pain, MS/Extremity: Negative for injury and deformity, Skin: Negative for injury, rash, and discoloration, Neuro: Negative for headache, weakness, numbness, tingling, and seizure, 06:17 Abdomen/GI: Positive for abdominal pain, nausea and vomiting, Exam: 06:17 Constitutional: This is a well developed, well nourished patient who is awake, alert, rt and in no acute distress. Head/Face: Normocephalic, atraumatic. Chest/axilla: Normal chest wall appearance and motion. Nontender with no deformity. No lesions are appreciated. Cardiovascular: Regular rate and rhythm with a normal S1 and S2. No gallops, murmurs, or rubs. Normal PMI, no JVD. No pulse deficits. Respiratory: Lungs have equal breath sounds bilaterally, clear to auscultation and percussion. No rales, rhonchi or wheezes noted. No increased work of breathing, no retractions or nasal flaring. Skin: Warm, dry with normal turgor. Normal color with no rashes, no lesions, and no evidence of cellulitis. MS/ Extremity: Pulses equal, no cyanosis. Neurovascular intact. Full, normal range of motion. Neuro: Awake and alert, GCS 15, oriented to person, place, time, and situation. Cranial nerves II-XII grossly intact. Motor strength 5/5 in all extremities. Sensory grossly intact. Cerebellar exam normal. Normal gait. 06:17 ECG was reviewed by the Attending Physician. 06:17 Abdomen/GI: Tenderness to the epigastrium with mild guarding, no rebound, distention, Vital Signs: 05:41 BP 155 / 73; Pulse 64; Resp 17; Temp 98.4; Pulse Ox 98% on R/A; Weight 93.89 kg; Height ha1 5 ft. 8 in. ; Pain 9/10; 06:45 BP 145 / 70; Pulse 67; Resp 18; Pulse Ox 97% ; cp4 07:18 BP 144 / 84; Pulse 66; Resp 17; Pulse Ox 97% ; Pain 0/10; ll1 08:05 BP 137 / 67; Pulse 69; Resp 16; Pulse Ox 96% ; Pain 0/10; ll1 05:41 Body Mass Index 31.47 (93.89 kg, 172.72 cm) ha1 05:41 Pain Scale: Adult ha1 07:18 Pain Scale: Adult ll1 08:05 Pain Scale: Adult ll1 MDM: 05:48 Medical Screening Exam initiated rt 07:03 Transition of care: After a detail discussion of the patient's case, care is rt transferred to Jethro Staley DO. 07:25 Transition of care: Care assumed from Mookie Judd MD. ms3 07:59 Differential diagnosis: Nonspecific abd pain, gastritis, cholecystitis, pancreatitis, ms3 appendicitis, diverticulitis, viral gastroenteritis, gastroenteritis. Data reviewed: vital signs, nurses notes, lab test result(s), radiologic studies, and as a result, I will discharge patient. I considered the following discharge prescriptions or medication management in the emergency department Medications were administered in the Emergency Department. See MAR. Independent interpretation of the following test(s) in the Emergency Department EKG: See my EKG interpretation above. Counseling: I had a detailed discussion with the patient and/or guardian regarding the historical points, exam findings, and any diagnostic results supporting the discharge/admit diagnosis, lab results, radiology results, the need for outpatient follow up, to return to the emergency department if symptoms worsen or persist or if there are any questions or concerns that arise at home. Special discussion: Based on the patient's Hx, exam, and Dx evaluation, there is no indication for emergent surgery or inpatient Tx. It is understood by the patient/guardian that if the Sx's persist or worsen they need to return immediately for re-evaluation. ED course: Discussed labs that were significant for creatinine 1.62, platelets of 125. Patient states he has a history of thrombocytopenia. CT abdomen pelvis shows cholelithiasis. Patient to follow-up with his primary care physician in 2 to 3 days. Patient understands and agrees with plan. All questions were answered. Return precautions discussed include worsening symptoms, or any other concerns. On reevaluation patient symptoms are improved, patient is alert and oriented x 4, in no apparent distress, nontoxic-appearing, speaking full sentences.. 10/17 05:56 Order name: CBC with Diff; Complete Time: 06:33 rt 10/17 05:56 Order name: CMP; Complete Time: 06:33 rt 10/17 05:56 Order name: Lipase; Complete Time: 06:33 rt 10/17 05:56 Order name: Troponin High Sensitivity; Complete Time: 06:33 rt 10/17 06:55 Order name: Abdomen ; Complete Time: 07:50 EDMS 10/17 05:56 Order name: EKG; Complete Time: 05:56 rt 10/17 05:56 Order name: IV Saline Lock; Complete Time: 05:58 rt 10/17 05:56 Order name: Labs collected and sent; Complete Time: 05:58 rt 10/17 05:56 Order name: EKG - Nurse/Tech; Complete Time: 06:11 rt EC:17 Rate is 61 beats/min. Rhythm is regular, 1st Degree Block with No ectopy. QRS [place] is rt Normal. MA interval is prolonged at 210 msec. QRS interval is normal. QT interval is normal. No Q waves. T waves are Normal. No ST changes noted. Interpreted by me. Administered Medications: 06:05 Drug: Famotidine IVP 20 mg IVP once; dilute with 10 mL 0.9% NaCl; give over 2 minutes cp4 Route: IVP; Site: right antecubital; 06:45 Follow up: Response: No adverse reaction cp4 06:05 Drug: GI Cocktail without - (Maalox PO 30 ml, Lidocaine Mucous Membrane 2 % 15 cp4 ml) PO once Route: PO; 06:45 Follow up: Response: No adverse reaction cp4 Disposition Summary: 10/17/24 07:58 Discharge Ordered Notes: Location: Home ms3 Condition: Stable ms3 Diagnosis - Abdominal pain, Generalized ms3 - Essential (primary) hypertension ms3 - Other cholelithiasis without obstruction ms3 Followup: ms3 - With: Arjun Garcia DO - When: 2 - 3 days - Reason: Recheck today's complaints Discharge Instructions: - Discharge Summary Sheet ms3 - Abdominal Pain, Adult ms3 - Cholelithiasis, [id number] ms3 Forms: - Medication Reconciliation Form ms3 - Antibiotic Education ms3 - Prescription Opioid Use ms3 - Patient Portal Instructions ms3 - Leadership Thank You Letter ms3 Signatures: Dispatcher [employer] EDMS Jethro Staley DO DO ms3 Lore Troy, NATALIE RN ha1 Mookie Judd MD MD rt Potter, Christina cp4 Corrections: (The following items were deleted from the chart) 06:55 05:56 Abdomen Pelvis W [id number] ordered. EDMS EDMS
--- NOTE | 2024-10-17 12:06 | EKG ---
Test Date: 2024-10-17 Test Time: 06:10:01 [employer] Officer: THANH MEASUREMENT RESULTS: Intervals: Rate: 61 IA: 210 QRSD: 108 QT: 424 QTc: 426 [place]: P: 35 IA: 210 QRS: 55 T: 85 INTERPRETIVE STATEMENTS: Sinus rhythm with 1st degree AV block Otherwise normal ECG Compared to ECG 06/13/2021 15:18:40 Incomplete right bundle-branch block no longer present Myocardial infarct finding no longer present ST (T wave) deviation no longer present Possible ischemia no longer present Electronically Signed On 10-17-24 12:06:08 CDT by Bob Solano
[2024-10-18 12:42] VITALS: BP 144/84
[2024-10-18 12:50] VITALS: TEMP 99; O2SAT 100
== END 2024-10-17 08:06 | disposition home or self-care (01) ==
LOC: ER 05:33
DX: K80.80 Other cholelithiasis without obstruction (principal); I10 Essential (primary) hypertension; E11.9 Type 2 diabetes mellitus without complications; E78.00 Pure hypercholesterolemia, unspecified; Z79.01 Long term (current) use of anticoagulants; Z95.1 Presence of aortocoronary bypass graft
CPT/HCPCS: 36415; 74176; 80053; 83690; 84484; 85025; 93005; 96374; 99284